=== PATIENT | female | born 1945 | race Caucasian/White ===

== ENCOUNTER 2022-08-08 09:49 | Inpatient (IN) ==
[2022-08-08] MEDS ORDERED: KETOROLAC 30 MG/ML VIAL IV ONE (09:56)
--- NOTE | 2022-08-08 10:35 | XRay Report ---
INDICATION: trauma TECHNIQUE: AP and crosstable lateral right femur COMPARISON: None. FINDINGS: Previous right total knee arthroplasty Right hip is not optimally visualized. If this patient has right hip pain in a right hip fracture is suspected routine right hip x-rays are recommended. Right femur is otherwise negative. Normal femoral diaphysis. There is no fracture. No cortical destruction. There is atherosclerotic calcification. No focal soft tissue abnormality IMPRESSION: 1. Poorly visualized right hip. If right hip pathology is suspected repeat plain film examination or CT scan is recommended. 2. Previous right total knee arthroplasty 3. Negative right femoral diaphysis Interpreted and Authenticated by: Daryl Dunaway 08/08/22
[2022-08-08] MEDS ORDERED: fentaNYL 100 MCG/2 ML VIAL IV ONE (11:04)
--- NOTE | 2022-08-08 11:36 | Cat Scan Report ---
INDICATION: Right hip pain TECHNIQUE: Axial images through the pelvis. Sagittal and coronal reformatted images COMPARISON: None. FINDINGS: Right subcapital hip fracture. This is mildly displaced. Left hip is negative. There is no fracture. No avascular necrosis Sacrum is negative. No sacral fracture. No lytic lesion. Severe degenerative facet arthropathy at L5-S1. No intrapelvic abnormality. There is atherosclerotic calcification. No pelvic mass. No fluid collection. There is prominent fecal material consistent with constipation. There is an umbilical hernia which measures approximately 2.5 cm in cross-sectional diameter. There is a knuckle of small bowel protruding into the herniated defect Pelvis is negative. No pelvic fracture. IMPRESSION: 1. Displaced right subcapital hip fracture 2. Small umbilical hernia with a knuckle of small bowel 3. Probable constipation Interpreted and Authenticated by: Daryl Dunaway 08/08/22
[2022-08-08 12:58] LABS: INR 1.1 (0.9-1.1); Prothrombin Time 14.4 sec (11.9-14.5)
[2022-08-08 13:11] LABS: Basophils # (Auto) 0.01 K/mcL (0.00-0.30); Basophils % (Auto) 0.2 % (0.0-2.0); Eosinophils # (Auto) 0.07 K/mcL (0.00-0.70); Eosinophils % (Auto) 1.7 % (0.0-7.0); Hematocrit 27.8 % (34.1-44.9); Hemoglobin 8.9 g/dL (11.2-15.7); Lymphocytes % (Auto) 11.9 % (15.5-49.0); Mean Cell Volume 80.6 fL (80.0-100.0); Mean Platelet Volume 10.4 fL (8.8-12.5); Monocytes # (Auto) 0.22 K/mcL (0.10-0.90); Monocytes % (Auto) 5.3 % (1.0-12.0); Neutrophils % (Auto) 80.4 % (38.0-78.0); Platelet Count 68 K/mcL (140-440); RBC 3.45 M/mcL (3.59-5.38); Red Cell Distribution Width 18.5 % (11.5-14.5); WBC 4.2 K/mcL (4.5-11.0)
[2022-08-08 13:15] LABS: ALT/SGPT 29 U/L (<40); AST/SGOT 33 U/L (<32); Albumin 3.5 gm/dL (3.2-5.2); Albumin/Globulin Ratio 1.1 (1.0-2.3); Alkaline Phosphatase 230 U/L (39-117); Bilirubin,Total 0.7 mg/dL (0.1-1.0); Blood Urea Nitrogen 62 mg/dL (8-23); Carbon Dioxide 23 mmol/L (22-30); Chloride 104 mmol/L (96-108); Globulin 3.2 gm/dL (2.2-3.7); Glomerular Filtration Rate 22; Glucose 196 mg/dL (70-105)
--- NOTE | 2022-08-08 13:17 | Emergency Department Note ---
Lower Extremity Injury HPI General Chief Complaint: Extremity Injury, Lower Stated Complaint: fall Time Seen by Provider: 08/08/22 12:10 Source: EMS Mode of arrival: EMS Limitations: no limitations History of Present Illness HPI Narrative: Narrative:Pt is a 77-year-old female who presents complaining of pain to her right hip. She fell over because she had walked away from her walker and has a "trick knee" after having it replaced. She states it goes out quite often. The woman fell to her right denies any head neck ribs or upper extremity trauma. The pt has also had a DVT in the past but is no longer being anticoagulated. In addition she has diabetes, CHF and hypertension. Related Data Home Medications Medication Instructions Recorded Confirmed furosemide 20 mg tablet (Lasix) 40 mg PO DAILY 05/26/17 07/13/17 gabapentin 600 mg tablet,extended 1,200 mg PO TID 05/26/17 07/13/17 release 24 hr (Gralise) insulin glargine 100 unit/mL 40 unit SQ HS 05/26/17 07/13/17 subcutaneous solution (Lantus U-100 Insulin) insulin regular human 100 unit/mL 0 unit SQ TIDAC 05/26/17 07/13/17 injection solution (Humulin R Regular U-100 Insulin) latanoprost 0.005 % eye drops 1 drp HS 05/26/17 07/13/17 loratadine 10 mg tablet (Loradamed) 10 mg PO DAILY 05/26/17 07/13/17 losartan 100 mg tablet (Cozaar) 100 mg PO HS 05/26/17 07/13/17 melatonin 5 mg capsule 5 mg PO HS 05/26/17 07/13/17 metoprolol succinate 25 mg 25 mg PO BID 05/26/17 07/13/17 tablet,extended release 24 hr nitroglycerin 0.4 mg sublingual 0.4 mg SL PRN PRN Chest Pain 05/26/17 07/13/17 tablet (Nitrostat) isosorbide mononitrate 30 mg 30 mg PO DAILY 06/26/17 07/13/17 tablet,extended release 24 hr omeprazole 20 mg capsule,delayed 20 mg PO BIDAC 06/26/17 07/13/17 release warfarin 5 mg tablet (Coumadin) 0 mg PO DAILY 07/13/17 07/13/17 Previous Rx's Medication Instructions Recorded oxycodone-acetaminophen 5 mg-325 1 - 2 tab PO Q4H PRN Pain #60 tabs 06/30/17 mg tablet Allergies Allergy/AdvReac Type Severity Reaction Status Date / Time adhesive tape AdvReac Severe Signifcant Verified 08/08/22 09:51 Jovel shellfish derived AdvReac Unknown Unknown Verified 08/08/22 09:52 latex AdvReac Burn Verified 08/08/22 09:51 Opioids - Morphine Analogues AdvReac Vomiting Verified 08/08/22 09:51 red dye AdvReac "yeast Verified 08/08/22 09:51 infection" Plastic Tape AdvReac Severe Significant Uncoded 05/26/17 12:23 jovel Review of Systems ROS ROS Narrative: Narrative: PFSH Narrative Patient History Narrative: Narrative: Medical/Surgical/Family History All Active Problems (Updated 07/13/17 @ 16:57 by Willy Botello MD) Knee pain, right (Acute) DVT (deep venous thrombosis) (Acute) Knee effusion (Acute) Postoperative edema (Acute) Stable angina (Acute) Status post total knee replacement, right (Acute) Social History Smoking Status: Never smoker Exam Narrative Narrative: Narrative: General Limitations: no limitations Course Vital Signs Vital signs: Vital Signs Temperature 97.9 F 08/08/22 09:49 Pulse Rate 69 08/08/22 09:49 Respiratory Rate 14 08/08/22 09:49 Blood Pressure 144/69 08/08/22 09:49 Pulse Oximetry (%) 100 08/08/22 09:49 Oxygen Delivery Method 08/08/22 09:49 Temperature 97.9 F 08/08/22 09:49 Pulse Rate 65 08/08/22 12:31 Respiratory Rate 14 08/08/22 09:49 Blood Pressure 165/64 08/08/22 12:31 Pulse Oximetry (%) 99 08/08/22 12:31 Oxygen Delivery Method 08/08/22 09:49 [facility] Narrative Medical decision making narrative: Narrative: Patient's CAT scan showed Right subcapital hip fracture. This is mildly displaced. Left hip is negative. There is no fracture. No avascular necrosis Sacrum is negative. No sacral fracture. No lytic lesion. Severe degenerative facet arthropathy at L5-S1. No intrapelvic abnormality. There is atherosclerotic calcification. No pelvic mass. No fluid collection. There is prominent fecal material consistent with constipation. There is an umbilical hernia which measures approximately 2.5 cm in cross-sectional diameter. There is a knuckle of small bowel protruding into the herniated defect Pelvis is negative. No pelvic fracture. IMPRESSION: 1. Displaced right subcapital hip fracture Dr. Pereira was consulted and will return call soon as he is out of surgery. Sepsis Sepsis Identified: No Lab Data Result diagrams: 08/08/22 12:10 08/08/22 12:10 Labs: Lab Results 08/08/22 08/08/22 Range/Units 12:10 12:10 WBC 4.2 L (4.5-11.0) K/mcL RBC 3.45 L (3.59-5.38) M/mcL Hgb 8.9 L (11.2-15.7) g/dL Hct 27.8 L (34.1-44.9) % MCV 80.6 (80.0-100.0) fL MCH 25.8 L (26.0-34.0) pg MCHC 32.0 (31.0-36.0) g/dL RDW 18.5 H (11.5-14.5) % Plt Count 68 L (140-440) K/mcL MPV 10.4 (8.8-12.5) fL Immature Gran % (Auto) 0.5 (0.0-0.5) % Neut % (Auto) 80.4 H (38.0-78.0) % Lymph % (Auto) 11.9 L (15.5-49.0) % [place] % (Auto) 5.3 (1.0-12.0) % Eos % (Auto) 1.7 (0.0-7.0) % Baso % (Auto) 0.2 (0.0-2.0) % Lymph # (Auto) 0.50 L (1.50-4.80) K/mcL [place] # (Auto) 0.22 (0.10-0.90) K/mcL Eos # (Auto) 0.07 (0.00-0.70) K/mcL Baso # (Auto) 0.01 (0.00-0.30) K/mcL Immature Gran # 0.02 (0.00-0.05) K/mcl Absolute Neutrophils 3.37 (1.80-8.00) K/mcL PT 14.4 (11.9-14.5) sec INR 1.1 (0.9-1.1) Discharge Plan Patient/Caregiver Discharge Instructions Follow up with: Marina Mejía MD [Primary Care Provider] - Prescriptions: No Action latanoprost 1 GTT Bottle 1 drp OU HS insulin glargine [Lantus U-100 Insulin] 1 UNIT/0.01 ML Unit 40 unit SQ HS insulin regular human [Humulin R Regular U-100 Insuln] 1 UNIT/0.01 ML Unit 0 unit SQ TIDAC nitroglycerin [Nitrostat] 0.4 MG Tab.Subl 0.4 mg SL PRN PRN (Reason: Chest Pain) furosemide [Lasix] 20 MG Tablet 40 mg PO DAILY metoprolol succinate 25 MG Tab.Er.24h 25 mg PO BID losartan [Cozaar] 100 MG Tablet 100 mg PO HS loratadine [Loradamed] 10 MG Tablet 10 mg PO DAILY melatonin 5 MG Capsule 5 mg PO HS gabapentin [Gralise] 600 MG Tab.Er.24h 1,200 mg PO TID Label Comments: 1200mg PO BID and 600mg at Noon isosorbide mononitrate 30 MG Tab.Xl.24h 30 mg PO DAILY omeprazole 20 MG Capsule 20 mg PO BIDAC oxycodone-acetaminophen 1 TAB tablet 1 - 2 tab PO Q4H PRN (Reason: Pain) Qty: 60 0RF warfarin [Coumadin] 5 MG Tablet 0 mg PO DAILY Label Comments: 5mg alternating with 7.5mg
--- NOTE | 2022-08-08 15:18 | Internal Med History&Physical ---
HPI History of Present Illness Patient information: Note initiated : 08/08/22 at 3:12 pm Service Date, if different from initiated Date: [] Patient: Nathaly Kunz 77 y/o F admitted on for fall. Chief Complaint: [fall with right hip fracture] Chief complaint: fall with right hip fracture History of present illness: Ms. Kunz is a 77 year old F history of DVT, osteoarthritis status post right total knee replacement, type 2 diabetes mellitus, essential hypertensions, presenting with fall with right hip fracture. Earlier today, when she was walking from 1 room to the other, her knee just gave out and she fell landed on her right hip. She did not hit her head. She denies loss of consciousness. She denies any chest pain or palpitations. She denies lightheadedness. She denies headaches. She denies altered mental status or confusions. She denies any shortness of breath. Vital signs significant for slightly elevated blood pressure 163/60 9 mmHg latest. Labs remarkable for serum potassium level of 5.8, and serum Cr level of 2.1, baseline of 1.1. Hip and pelvic X ray showing displaced right subcapital hip fracture. Admission request was called for right hip fracture. Patient states that she is not on any anticoagulants such as Coumadin; she was only on Aspirin. Constitutional Constitutional: Absent chills, excessive sweating, fatigue, fever(s) or weakness EENT Eyes: Absent blurry vision, change in vision, loss of vision or other visual disturbances Ears: Absent decreased hearing or tinnitus Nose, mouth and throat: Absent abnormal hearing, dry mouth, headache(s), nasal congestion or sore throat Cardiovascular Cardiovascular: Absent chest pain, chest pain at rest, edema, irregular heart rhythm or palpatations Respiratory Respiratory: Absent cough, dyspnea or wheezing Gastrointestinal Gastrointestinal: Absent abdominal pain, constipation, diarrhea, nausea or vomiting Musculoskeletal Musculoskeletal: Absent back pain, deformity, limited range of motion, muscle cramps, muscle weakness or numbness Additional comments: Right hip pain Integumentary Integumentary: Absent lesions, rash or wounds Neurological Neurological: Absent focal weakness, headache(s) or numbness Psychiatric Psychiatric: Absent anxiety, depression or hallucinations PFSH PFSH All Active Problems (Updated 08/08/22 @ 15:17 by Valente Hopkins MD) Hyperkalemia (Acute) Stage 2 acute kidney injury (Acute) Essential hypertension (Acute) T2DM (type 2 diabetes mellitus) (Acute) Closed right hip fracture (Acute) Knee pain, right (Acute) DVT (deep venous thrombosis) (Acute) Knee effusion (Acute) Postoperative edema (Acute) Stable angina (Acute) Status post total knee replacement, right (Acute) Fracture of femur (Acute) Social History smoking status: Never smoker MEDS/ALLERGIES Home Medications and Allergies Home Medications Medication Instructions Recorded Confirmed Type furosemide 20 mg tablet (Lasix) 40 mg PO DAILY 05/26/17 07/13/17 History gabapentin 600 mg tablet,extended 1,200 mg PO TID 05/26/17 07/13/17 History release 24 hr (Gralise) insulin glargine 100 unit/mL 40 unit SQ HS 05/26/17 07/13/17 History subcutaneous solution (Lantus U-100 Insulin) insulin regular human 100 unit/mL 0 unit SQ TIDAC 05/26/17 07/13/17 History injection solution (Humulin R Regular U-100 Insulin) latanoprost 0.005 % eye drops 1 drp HS 05/26/17 07/13/17 History loratadine 10 mg tablet (Loradamed) 10 mg PO DAILY 05/26/17 07/13/17 History losartan 100 mg tablet (Cozaar) 100 mg PO HS 05/26/17 07/13/17 History melatonin 5 mg capsule 5 mg PO HS 05/26/17 07/13/17 History metoprolol succinate 25 mg 25 mg PO BID 05/26/17 07/13/17 History tablet,extended release 24 hr nitroglycerin 0.4 mg sublingual 0.4 mg SL PRN PRN Chest Pain 05/26/17 07/13/17 History tablet (Nitrostat) isosorbide mononitrate 30 mg 30 mg PO DAILY 06/26/17 07/13/17 History tablet,extended release 24 hr omeprazole 20 mg capsule,delayed 20 mg PO BIDAC 06/26/17 07/13/17 History release oxycodone-acetaminophen 5 mg-325 1 - 2 tab PO Q4H PRN Pain #60 tabs 06/30/17 07/13/17 Rx mg tablet warfarin 5 mg tablet (Coumadin) 0 mg PO DAILY 07/13/17 07/13/17 History Allergies Allergy/AdvReac Type Severity Reaction Status Date / Time adhesive tape AdvReac Severe Signifcant Verified 08/08/22 09:51 Jovel shellfish derived AdvReac Unknown Unknown Verified 08/08/22 09:52 latex AdvReac Burn Verified 08/08/22 09:51 Opioids - Morphine Analogues AdvReac Vomiting Verified 08/08/22 09:51 red dye AdvReac "yeast Verified 08/08/22 09:51 infection" Plastic Tape AdvReac Severe Significant Uncoded 05/26/17 12:23 jovel EXAM Constitutional Vitals: Temp Pulse Resp BP Pulse Ox O2 Del Method 36.6 C 64 14 163/69 98 08/08/22 09:49 08/08/22 14:50 08/08/22 09:49 08/08/22 14:50 08/08/22 14:50 08/08/22 09:49 General appearance: cooperative and no acute distress Head Head exam: Present atraumatic and normocephalic Eye Eye exam: Present EOMI and PERRL ENT ENT exam: Present mucous membranes moist, normal exam and normal external ear exam Neck Neck exam: Present normal inspection; Absent lymphadenopathy, tenderness or thyromegaly Respiratory Respiratory exam: Absent accessory muscle use, respiratory distress or wheezes Cardiovascular Cardiovascular exam: Present normal rate and rhythm; Absent JVD GI/Abdominal GI/Abdominal exam: Present normal bowel sounds and soft; Absent organomegaly or tenderness Additional comments: Price catheter in place Extremities Exam Extremities exam: Present normal capillary refill, normal inspection and tenderness; Absent full ROM Additional comments: Right lower extremity active and passive ROMs limited by pain Neurological Exam Neurological exam: Present alert, CN II-XII intact and oriented X3; Absent motor sensory deficit Psychiatric Psychiatric exam: Present normal affect and normal mood; Absent anxious or depressed Skin Skin exam: Present dry and intact DATA Data Completed and Pending Labs: Labs from last 24 hours 08/08/22 08/08/22 08/08/22 12:10 12:10 12:10 WBC 4.2 L RBC 3.45 L Hgb 8.9 L Hct 27.8 L MCV 80.6 MCH 25.8 L MCHC 32.0 RDW 18.5 H Plt Count 68 L MPV 10.4 Immature Gran % (Auto) 0.5 Neut % (Auto) 80.4 H Lymph % (Auto) 11.9 L [place] % (Auto) 5.3 Eos % (Auto) 1.7 Baso % (Auto) 0.2 Lymph # (Auto) 0.50 L [place] # (Auto) 0.22 Eos # (Auto) 0.07 Baso # (Auto) 0.01 Immature Gran # 0.02 Absolute Neutrophils 3.37 PT 14.4 INR 1.1 Sodium 136 Potassium 5.8 H Chloride 104 Carbon Dioxide 23 Anion Gap 9.0 BUN 62 H Creatinine 2.1 H GFR Calculation 22 Glucose 196 H Calcium 10.0 Total Bilirubin 0.7 AST 33 H ALT 29 Alkaline Phosphatase 230 H Total Protein 6.7 Albumin 3.5 Globulin 3.2 Albumin/Globulin Ratio 1.1 Urine Color Urine Appearance Urine pH Ur Specific [place] Urine Protein Urine Glucose (UA) Urine Ketones Urine Occult Blood Urine Nitrate Urine Bilirubin Urine Urobilinogen Ur Leukocyte Esterase 08/08/22 12:00 WBC RBC Hgb Hct MCV MCH MCHC RDW Plt Count MPV Immature Gran % (Auto) Neut % (Auto) Lymph % (Auto) [place] % (Auto) Eos % (Auto) Baso % (Auto) Lymph # (Auto) [place] # (Auto) Eos # (Auto) Baso # (Auto) Immature Gran # Absolute Neutrophils PT INR Sodium Potassium Chloride Carbon Dioxide Anion Gap BUN Creatinine GFR Calculation Glucose Calcium Total Bilirubin AST ALT Alkaline Phosphatase Total Protein Albumin Globulin Albumin/Globulin Ratio Urine Color Pending Urine Appearance Pending Urine pH Pending Ur Specific [place] Pending Urine Protein Pending Urine Glucose (UA) Pending Urine Ketones Pending Urine Occult Blood Pending Urine Nitrate Pending Urine Bilirubin Pending Urine Urobilinogen Pending Ur Leukocyte Esterase Pending A/P Assessment and plan (1) Closed right hip fracture: Status: Acute (2) DVT (deep venous thrombosis): Status: Acute Qualifiers: Affected thrombotic vein of extremity: popliteal Chronicity: acute DVT location: lower extremity Laterality: right Qualified Code(s): I82.431 - Acute embolism and thrombosis of right popliteal vein (3) T2DM (type 2 diabetes mellitus): Status: Acute (4) Essential hypertension: Status: Acute (5) Stage 2 acute kidney injury: Status: Acute (6) Hyperkalemia: Status: Acute Narrative A/P Narrative: Assessment and Plans: 1. Closed right subcapital hip fracture: Inpatient med surg Consult orthopedic surgeon Dr. Pereira for surgical management, recs. appreciated NPO after midnight with IV fluid NS@100cc/hr Bedrest Tylenol PRN mild pain [place] PRN moderate pain Dilaudid IV PRN severe pain Robaxin PRN muscle spasm Physical therapy evaluation and treatment 2. Hyperkalemia without ECG changes: Calcium gluconate IV once IV fluid NS@100cc/hr Hold Losartan BMP in the morning to trend serum potassium level 3. Stage 2 acute kidney injury: Avoid nephrotoxic agents Hold Lasix, Losartan IV fluid NS@100cc/hr BMP in the morning to trend kidney functions 4. T2DM: HgA1c Hold any oral hypoglycemics Lantus 40 unit HS Insulin Lispro SSI AC HS Neurotin Accu Check AC HS Hypoglycemia protocol Diabetic diet until midnight 5. Essential hypertension: Hold Lasix, Losartan Metoprolol ER Hydralazine 10mg IV q4-6hr PRN SBP>=180 and/or DBP>=110mmHg GI ppx: Prilosec DVT ppx: SCDs Code status: Full Prognosis: Guarded Disposition: inpatient med surg; PT Time Spent With Patient Time: Total time spent is greater than 50% in coordination of care (as documented) at patient's floor/unit and/or counseling patient: Total time spent with greater than 50% in coordination of care (as documented) at patient's floor/unit and/or counseling patient:: 50 - 70 minutes
[2022-08-08 15:21] LABS: Appearance,Urine CLEAR (Clear); Bacteria,Urine MOD /hpf (0); Bilirubin,Urine NEGATIVE (Negative); Color,Urine LT. YELLOW; Culture Indicated,Urine yes; Glucose,Urine (UA) NEGATIVE (Negative); Ketones,Urine NEGATIVE (Negative); Leukocyte Esterase,Urine SMALL /uL (Negative); Nitrate,Urine Positive (Negative); PH,Urine 5.5 (5.0-9.0); Protein,Urine NEGATIVE (Negative); Urine Blood NEGATIVE ery/mcL (Negative); Urine Hyaline Cast 3 /lph (0-2); Urine RBC < 1 /hpf (0-3); Urine Squamous Epithelial Cell < 1 /hpf (0-4); Urine Transitional Epi Cells < 1 /hpf (0-2); Urine WBC 24 /hpf (0-4); Urobilinogen,Urine Normal
[2022-08-08] MEDS ORDERED: IPRATROPIUM/ALBUTEROL 3 ML AMPUL.NEB NEB PRN (16:06)
[2022-08-08] MEDS ORDERED: DEXTROSE 31 GM ORAL.SUSP PO PRN (16:06)
[2022-08-08] MEDS ORDERED: hydrALAZINE 20 MG/ML VIAL IV PRN (16:06)
[2022-08-08] MEDS ORDERED: traZODone HCL 50 MG TABLET PO PRN (16:06)
[2022-08-08] MEDS ORDERED: HYDROcodone/APAP 5/325MG TABLET PO PRN (16:06)
[2022-08-08] MEDS ORDERED: CALCIUM GLUCONATE 4.65 MEQ/10 ML VIAL IV ONE (16:06)
[2022-08-08] MEDS ORDERED: DEXTROSE 50% 50 ML VIAL IV PRN (16:06)
[2022-08-08] MEDS: 0.9 % SODIUM CHLORIDE 1,000 ML IV SCH (16:22)
[2022-08-08 16:57] LABS: Estimated Average Glucose(eAG) 183 mg/dL
[2022-08-08] MEDS: CALCIUM GLUCONATE 4.65 MEQ in DEXTROSE 5% IN WATER 50 ML IV SCH ×2 (16:59→17:41)
[2022-08-08] MEDS: INSULIN LISPRO 1 UNIT/0.01 ML UNIT SQ SCH ×2 (16:59→22:26)
[2022-08-08] MEDS: HYDROmorphone 0.5 MG/0.5 ML SYRINGE IV PRN ×2 (17:44→22:20)
[2022-08-08] MEDS ORDERED: NITROGLYCERIN 0.4 MG TAB.SUBL SL PRN (20:04)
[2022-08-08] MEDS: LATANOPROST OPHTH DROPS 2.5ML BOTTLE OU SCH (22:19)
[2022-08-08] MEDS: METOPROLOL SUCCINATE 25 MG TAB.XL.24H PO SCH (22:25)
[2022-08-08] MEDS: GABAPENTIN 400 MG CAPSULE PO SCH (22:25)
[2022-08-08] MEDS: DOCUSATE SODIUM 100 MG CAPSULE PO SCH (22:25)
[2022-08-08] MEDS: MELATONIN 3 MG TABLET PO SCH (22:25)
[2022-08-08] MEDS: SENNOSIDES 1 TABLET PO SCH (22:25)
[2022-08-08] MEDS: INSULIN GLARGINE, HUMAN 1 UNIT/0.01 ML SQ SCH (22:26)
[2022-08-08] MEDS: 0.9 % SODIUM CHLORIDE 10 ML SYRINGE IV SCH (22:40)
[2022-08-09] MEDS: 0.9 % SODIUM CHLORIDE 1,000 ML IV SCH ×3 (02:25→20:46)
[2022-08-09] MEDS: HYDROmorphone 0.5 MG/0.5 ML SYRINGE IV PRN ×5 (02:26→22:37)
[2022-08-09] MEDS: 0.9 % SODIUM CHLORIDE 10 ML SYRINGE IV SCH ×3 (04:51→22:03)
[2022-08-09 06:51] LABS: Basophils # (Auto) 0 K/mcL (0.00-0.30); Basophils % (Auto) 0 % (0.0-2.0); Eosinophils # (Auto) 0.11 K/mcL (0.00-0.70); Eosinophils % (Auto) 4.5 % (0.0-7.0); Hematocrit 24.9 % (34.1-44.9); Hemoglobin 8.1 g/dL (11.2-15.7); Lymphocytes # (Auto) 0.53 K/mcL (1.50-4.80); Lymphocytes % (Auto) 21.9 % (15.5-49.0); Mean Corpuscular HGB Conc 32.5 g/dL (31.0-36.0); Mean Platelet Volume 10.8 fL (8.8-12.5); Monocytes # (Auto) 0.18 K/mcL (0.10-0.90); Monocytes % (Auto) 7.4 % (1.0-12.0); Neutrophils % (Auto) 65.8 % (38.0-78.0); Platelet Count 71 K/mcL (140-440); Red Cell Distribution Width 18.3 % (11.5-14.5); WBC 2.4 K/mcL (4.5-11.0)
[2022-08-09 07:05] LABS: ALT/SGPT 24 U/L (<40); AST/SGOT 27 U/L (<32); Albumin 3.1 gm/dL (3.2-5.2); Alkaline Phosphatase 209 U/L (39-117); Bilirubin,Total 0.5 mg/dL (0.1-1.0); Blood Urea Nitrogen 58 mg/dL (8-23); Calcium 9.8 mg/dL (8.6-10.4); Carbon Dioxide 22 mmol/L (22-30); Chloride 107 mmol/L (96-108); Glomerular Filtration Rate 27; Glucose 138 mg/dL (70-105)
[2022-08-09] MEDS: INSULIN LISPRO 1 UNIT/0.01 ML UNIT SQ SCH ×4 (08:01→22:02)
[2022-08-09] MEDS: METOPROLOL SUCCINATE 25 MG TAB.XL.24H PO SCH ×2 (08:05→22:15)
[2022-08-09] MEDS: DOCUSATE SODIUM 100 MG CAPSULE PO SCH ×2 (08:05→22:15)
[2022-08-09] MEDS: GABAPENTIN 400 MG CAPSULE PO SCH ×3 (08:05→22:15)
[2022-08-09] MEDS: OMEPRAZOLE 20 MG CAPSULE PO SCH ×2 (08:05→17:00)
[2022-08-09] MEDS: ISOSORBIDE MONONITRATE 30 MG TAB.XL.24H PO SCH (08:05)
--- NOTE | 2022-08-09 08:52 | Internal Med Progress Note ---
SUBJECTIVE Subjective Patient information: Note initiated : 08/09/22 at 8:48 am Service Date, if different from initiated Date: [] Patient: Nathaly Kunz 77 y/o F admitted on 08/08/22 for fall. Chief Complaint: [] Interval history: Ms. Kunz is a 77 year old F history of DVT, osteoarthritis status post right total knee replacement, type 2 diabetes mellitus, essential hypertensions, presenting with fall with right hip fracture. Earlier today, when she was walking from 1 room to the other, her knee just gave out and she fell landed on her right hip. She did not hit her head. She denies loss of consciousness. She denies any chest pain or palpitations. She denies lightheadedness. She denies headaches. She denies altered mental status or confusions. She denies any shortness of breath. Vital signs significant for slightly elevated blood pressure 163/60 9 mmHg latest. Labs remarkable for serum potassium level of 5.8, and serum Cr level of 2.1, baseline of 1.1. Hip and pelvic X ray showing displaced right subcapital hip fracture. Admission request was called for right hip fracture. Patient states that she is not on any anticoagulants such as Coumadin; she was only on Aspirin. 08/09: Serum potassium 5.8-->5.4, serum Cr level 2.1-->1.8. Continue IV fluid infusion for the time being. Patient did had good sleep last night, and she denies having any right hip pain at the moment. Urine studies suggest the presence of bacteriuria/urinary tract infections. She denies any dysuria but is complaining of increased urinary frequency prior to urinary catheter being placed in the ED. She denies any fever chills or diaphoresis. Surgery scheduled this afternoon. We have obtained blood culture x2 and will start her on Rocephin for coverage of urinary tract infections. Continue pain control meanwhile. Physical therapy evaluation and treatments after the surgery. Constitutional Vitals: Vital Signs Temp Pulse Resp BP Pulse Ox O2 Del Method 37.1 C 63 16 134/47 96 08/09/22 07:04 08/09/22 07:04 08/09/22 07:04 08/09/22 07:04 08/09/22 07:04 08/09/22 07:04 Period Temp Pulse Resp BP Sys/Stout Pulse Ox O2 Del Method O2 Flow Rate Last 24 Hr 36.3 C-37.4 C 59-82 14-18 134-169/47-81 93-100 Room Air-Room Air Intake and Output 08/08/22 08/09/22 08/09/22 19:59 03:59 11:59 Intake Total 60 1060 240 Output Total 650 Balance 60 1060 -410 Weight 72.575 kg 72.439 kg Intake & Output: Intake & Output 08/08/22 08/09/22 08/09/22 19:59 03:59 11:59 Intake Total 60 1060 240 Output Total 650 Balance 60 1060 -410 Weight 72.575 kg 72.439 kg Intake: IV 60 1060 Sodium Chloride 0.9% 1,000 ml @ 1000 100 mls/hr IV .Q10H [facility] Rx#: [id number] Calcium Gluconate 4.65 Meq In 60 60 Dextrose 5% in Water 50 ml @ 100 mls/hr IV 1630,1730 [facility] Rx# :[id number] Oral 240 Output: Urine Catheter Amount 650 Other: Urine Appearance Clear Uretheral (Price) Clear Clear Urine Color Yellow Uretheral (Price) Dark Yellow Yellow Head Head exam: Present atraumatic and normal inspection Eye Eye exam: Present normal appearance ENT ENT exam: Present mucous membranes moist, normal exam and normal external ear exam Neck Neck exam: Present normal inspection Respiratory Respiratory exam: Present normal respiratory exam Cardiovascular Cardiovascular exam: Present normal rate and rhythm GI/Abdominal GI/Abdominal exam: Present normal bowel sounds Additional comments: Price catheter in place Extremities Exam Extremities exam: Present tenderness; Absent full ROM or normal inspection Additional comments: Right lower extremity active and passive ROMs limited by pain Back Exam Back exam: Present normal inspection Neurological Exam Neurological exam: Present alert and oriented X3 Skin Skin exam: Present intact and warm OBJ DATA Labs CBC & Chem 7: 08/09/22 05:45 08/09/22 05:45 Labs: Abnormal Lab Results 08/09/22 08/09/22 08/08/22 05:45 05:45 12:10 WBC 2.4 L RBC 3.00 L Hgb 8.1 L Hct 24.9 L MCH RDW 18.3 H Plt Count 71 L Neut % (Auto) Lymph % (Auto) Lymph # (Auto) 0.53 L Absolute Neutrophils 1.59 L Potassium 5.4 H BUN 58 H Creatinine 1.8 H Glucose 138 H Hemoglobin A1c 8.0 H AST Alkaline Phosphatase 209 H Albumin 3.1 L Urine Nitrate Ur Leukocyte Esterase Urine WBC Urine Bacteria Hyaline Casts 08/08/22 08/08/22 08/08/22 12:10 12:10 12:00 WBC 4.2 L RBC 3.45 L Hgb 8.9 L Hct 27.8 L MCH 25.8 L RDW 18.5 H Plt Count 68 L Neut % (Auto) 80.4 H Lymph % (Auto) 11.9 L Lymph # (Auto) 0.50 L Absolute Neutrophils Potassium 5.8 H BUN 62 H Creatinine 2.1 H Glucose 196 H Hemoglobin A1c AST 33 H Alkaline Phosphatase 230 H Albumin Urine Nitrate Positive A Ur Leukocyte Esterase Small A Urine WBC 24 H Urine Bacteria Mod A Hyaline Casts 3 H Meds: Medications Acetaminophen (Acetaminophen 325 Mg Tablet) 650 mg PO Q6HP PRN; Protocol PRN Reason: Per Pain Protocol/Fever > 101 Hydrocodone Bitart/Acetaminophen (Hydrocodone/Apap 5/325mg Tablet) 2 tab PO Q4H P PRN; Protocol PRN Reason: Per Pain Protocol Last Admin: 08/09/22 08:05 Dose: 2 tab Albuterol/Ipratropium (Ipratropium/Albuterol 3 Ml Ampul.Neb) 3 ml NEB Q4HRT PRN PRN Reason: Wheezing Ceftriaxone Sodium (Ceftriaxone 1 Gm Vial) 1 gm IV Q24H [facility]; Protocol Dextrose (Dextrose 50% 50 Ml Vial) 0 ml IV UD PRN PRN Reason: Per Sliding Scale Diagnostic Test (Pha) (Accu-Chek 1 Each Strip) 1 each FS ACHS [facility] Last Admin: 08/09/22 08:01 Dose: 1 each Docusate Sodium (Docusate Sodium 100 Mg Capsule) 100 mg PO BID [facility] Last Admin: 08/09/22 08:05 Dose: 100 mg Gabapentin (Gabapentin 400 Mg Capsule) 1,200 mg PO TID [facility] Last Admin: 08/09/22 08:05 Dose: 1,200 mg Glucose (Dextrose 31 Gm Oral.Susp) 15 gm PO PRN PRN PRN Reason: Hypoglycemia Hydralazine HCl (Hydralazine 20 Mg/Ml Vial) 10 mg IV Q4-6HP PRN PRN Reason: Hypertension Hydromorphone HCl (Hydromorphone 0.5 Mg/0.5 Ml Syringe) 0.5 mg IV Q2HP PRN; Protocol PRN Reason: Per Pain Protocol Last Admin: 08/09/22 07:07 Dose: 0.5 mg Sodium Chloride (Sodium Chloride 0.9%) 1,000 mls @ 100 mls/hr IV .Q10H [facility] Last Admin: 08/09/22 02:25 Dose: 100 mls/hr Insulin Glargine (Insulin Glargine, Human 1 Unit/0.01 Ml) 40 unit SQ [facility] Last Admin: 08/08/22 22:26 Dose: 40 units Insulin Human Lispro (Insulin Lispro 1 Unit/0.01 Ml Unit) 0 unit SQ [facility]; Protocol Last Admin: 08/09/22 08:01 Dose: Not Given Isosorbide Mononitrate (Isosorbide Mononitrate 30 Mg Tab.Xl.24h) 30 mg PO DAILY [facility] Last Admin: 08/09/22 08:05 Dose: 30 mg Latanoprost (Latanoprost Ophth Drops 2.5ml Bottle) 1 gtt OU [facility] Last Admin: 08/08/22 22:19 Dose: Not Given Melatonin (Melatonin 3 Mg Tablet) 3 mg PO [facility] Last Admin: 08/08/22 22:25 Dose: 3 mg Methocarbamol (Methocarbamol 500 Mg Tablet) 500 mg PO QIDP PRN PRN Reason: Muscle Spasm Metoprolol Succinate (Metoprolol Succinate 25 Mg Tab.Xl.24h) 25 mg PO BID [facility] Last Admin: 08/09/22 08:05 Dose: 25 mg Nitroglycerin (Nitroglycerin 0.4 Mg Tab.Subl) 0.4 mg SL PRN PRN PRN Reason: Chest Pain Omeprazole (Omeprazole 20 Mg Capsule) 20 mg PO BIDAC [facility] Last Admin: 08/09/22 08:05 Dose: 20 mg Ondansetron HCl (Ondansetron 4 Mg/2 Ml Vial) 4 mg IV Q6HP PRN PRN Reason: Nausea And Vomiting Scopolamine (Scopolamine 1 Patch Patch) 1 patch TOPICAL PREOP PRN PRN Reason: Nausea And Vomiting Stop: 08/09/22 23:59 Senna (Sennosides 1 Tablet) 2 tab PO [facility] Last Admin: 08/08/22 22:25 Dose: 2 tab Sodium Chloride (0.9 % Sodium Chloride 10 Ml Syringe) 10 ml IV Q8 [facility] Last Admin: 08/09/22 04:51 Dose: Not Given Trazodone HCl (Trazodone Hcl 50 Mg Tablet) 25 mg PO HSP PRN PRN Reason: Insomnia A/P Assessment and plan (1) Closed right hip fracture: Status: Acute (2) DVT (deep venous thrombosis): Status: Acute Qualifiers: Affected thrombotic vein of extremity: popliteal Chronicity: acute DVT location: lower extremity Laterality: right Qualified Code(s): I82.431 - Acute embolism and thrombosis of right popliteal vein (3) T2DM (type 2 diabetes mellitus): Status: Acute (4) Essential hypertension: Status: Acute (5) Stage 2 acute kidney injury: Status: Acute (6) Hyperkalemia: Status: Acute (7) UTI (urinary tract infection): Status: Acute Narrative A/P Narrative: Assessment and Plans: 1. Closed right subcapital hip fracture: Inpatient med surg Consult orthopedic surgeon Dr. Pereira for surgical management, recs. appreciated NPO after midnight with IV fluid NS@100cc/hr Bedrest Tylenol PRN mild pain [place] PRN moderate pain Dilaudid IV PRN severe pain Robaxin PRN muscle spasm Physical therapy evaluation and treatment 2. Hyperkalemia without ECG changes: s/p Calcium gluconate IV once IV fluid NS@100cc/hr Hold Losartan BMP in the morning to trend serum potassium level 3. Stage 2 acute kidney injury: Avoid nephrotoxic agents Hold Lasix, Losartan IV fluid NS@100cc/hr BMP in the morning to trend kidney functions 4. T2DM: HgA1c 8.0 Hold any oral hypoglycemics Lantus 40 unit HS Insulin Lispro SSI AC HS (q6h while NPO) Neurontin Accu Check AC HS (q6h while NPO) Hypoglycemia protocol Resume Diabetic diet after surgery 5. Essential hypertension: Hold Lasix, Losartan Metoprolol ER Hydralazine 10mg IV q4-6hr PRN SBP>=180 and/or DBP>=110mmHg 6. Urinary tract infection: Blood culture X2 Urine culture cbc w/ auto diff in the morning to trend WBC Rocephin IV fluid NS@100cc/hr GI ppx: Prilosec DVT ppx: SCDs Code status: Full Prognosis: Stable Disposition: inpatient med surg; PT Time Spent With Patient Time: Total time spent is greater than 50% in coordination of care (as documented) at patient's floor/unit and/or counseling patient: Total time spent with greater than 50% in coordination of care (as documented) at patient's floor/unit and/or counseling patient:: 25 - 35 minutes QUALITY Stroke Symptom Onset Unknown: No VTE Deep Vein Thrombosis/Pulmonary Embolism Present on Admission: Yes
[2022-08-09] MEDS: cefTRIAXone 1 GM VIAL IV SCH (09:37)
[2022-08-09] MEDS ORDERED: SCOPOLAMINE 1 PATCH PATCH TOPICAL PRN (13:30)
[2022-08-09] MEDS ORDERED: ceFAZolin 2 GM in DEXTROSE 5% IN WATER 50 ML IV SCH (16:00)
[2022-08-09] MEDS ORDERED: FLEETS ADULT ENEMA PR PRN (16:16)
[2022-08-09] MEDS ORDERED: TRANEXAMIC ACID 1,000 MG/10 ML VIAL ONE (16:25)
[2022-08-09] MEDS ORDERED: ceFAZolin 1 GM VIAL IV SCH (16:30)
[2022-08-09] MEDS ORDERED: NALOXONE HCL 0.4 MG/ML VIAL IV PRN (17:02)
[2022-08-09] MEDS ORDERED: IPRATROPIUM/ALBUTEROL 3 ML AMPUL.NEB NEB PRN (17:02)
[2022-08-09] MEDS ORDERED: ACETAMINOPHEN 1,000 MG/100 ML BAG IV ONE ×2 (17:02→17:55)
[2022-08-09] MEDS ORDERED: ONDANSETRON 4 MG/2 ML VIAL IV PRN (17:02)
--- NOTE | 2022-08-09 17:20 | Brief Operative Note ---
Brief Operative Note Date of procedure: 08/09/22 Pre-op diagnosis: right hip fracture Post-op diagnosis: same Procedure: hemiarthroplasty Grafts/Implants: Yes Anesthesia: spinal Findings: fracture Complications: none Surgeon: Remberto Pereira Head Of Precision Targeting: Bipin Kennedy Estimated blood loss (cc): 100 Specimens Removed/Pathology: none sent Condition: stable Disposition: PACU
[2022-08-09] MEDS ORDERED: VANCOMYCIN 1 GM VIAL TOPICAL SCH (17:30)
[2022-08-09] MEDS ORDERED: DOCUSATE SODIUM 100 MG CAPSULE PO SCH (21:00)
[2022-08-09] MEDS: INSULIN GLARGINE, HUMAN 1 UNIT/0.01 ML SQ SCH (22:02)
[2022-08-09] MEDS: LATANOPROST OPHTH DROPS 2.5ML BOTTLE OU SCH (22:03)
[2022-08-09] MEDS: MELATONIN 3 MG TABLET PO SCH (22:15)
[2022-08-09] MEDS: SENNOSIDES 1 TABLET PO SCH (22:15)
[2022-08-09] MEDS: ASPIRIN 81 MG TAB.CHEW PO SCH (22:15)
[2022-08-09] MEDS ORDERED: METHOCARBAMOL 1,000 MG/10 ML VIAL ONE (23:37)
[2022-08-09] MEDS: METHOCARBAMOL 1,000 MG/10 ML VIAL IV PRN (23:40)
[2022-08-10] MEDS: ceFAZolin 1 GM VIAL IV SCH ×2 (00:19→08:31)
[2022-08-10] MEDS: HYDROmorphone 0.5 MG/0.5 ML SYRINGE IV PRN ×3 (02:29→21:38)
[2022-08-10] MEDS ORDERED: METHOCARBAMOL 1,000 MG/10 ML VIAL ONE (05:23)
[2022-08-10] MEDS: METHOCARBAMOL 1,000 MG/10 ML VIAL IV PRN ×2 (05:27→15:56)
[2022-08-10] MEDS: 0.9 % SODIUM CHLORIDE 1,000 ML IV SCH ×3 (05:39→15:46)
[2022-08-10] MEDS: 0.9 % SODIUM CHLORIDE 10 ML SYRINGE IV SCH ×4 (06:56→22:53)
[2022-08-10] MEDS: OMEPRAZOLE 20 MG CAPSULE PO SCH ×2 (07:06→17:53)
[2022-08-10] MEDS: HYDROCODONE/APAP 7.5/325MG TABLET PO PRN ×2 (07:06→14:08)
[2022-08-10] MEDS: INSULIN LISPRO 1 UNIT/0.01 ML UNIT SQ SCH ×4 (07:13→21:46)
[2022-08-10 07:27] LABS: Basophils # (Auto) 0.01 K/mcL (0.00-0.30); Basophils % (Auto) 0.3 % (0.0-2.0); Eosinophils # (Auto) 0.16 K/mcL (0.00-0.70); Eosinophils % (Auto) 4.3 % (0.0-7.0); Hematocrit 25.1 % (34.1-44.9); Hemoglobin 7.7 g/dL (11.2-15.7); Lymphocytes # (Auto) 0.78 K/mcL (1.50-4.80); Lymphocytes % (Auto) 20.7 % (15.5-49.0); Mean Cell Volume 84.2 fL (80.0-100.0); Mean Corpuscular HGB Conc 30.7 g/dL (31.0-36.0); Mean Platelet Volume 10.1 fL (8.8-12.5); Monocytes # (Auto) 0.27 K/mcL (0.10-0.90); Monocytes % (Auto) 7.2 % (1.0-12.0); Neutrophils % (Auto) 67.2 % (38.0-78.0); Platelet Count 74 K/mcL (140-440); RBC 2.98 M/mcL (3.59-5.38); Red Cell Distribution Width 18.4 % (11.5-14.5); WBC 3.8 K/mcL (4.5-11.0)
[2022-08-10 07:44] LABS: ALT/SGPT 23 U/L (<40); AST/SGOT 37 U/L (<32); Albumin 3.4 gm/dL (3.2-5.2); Albumin/Globulin Ratio 1.1 (1.0-2.3); Alkaline Phosphatase 226 U/L (39-117); Bilirubin,Total 0.4 mg/dL (0.1-1.0); Blood Urea Nitrogen 53 mg/dL (8-23); Calcium 9.4 mg/dL (8.6-10.4); Carbon Dioxide 19 mmol/L (22-30); Chloride 109 mmol/L (96-108); Glomerular Filtration Rate 29; Glucose 133 mg/dL (70-105)
[2022-08-10] MEDS: GABAPENTIN 400 MG CAPSULE PO SCH ×3 (08:28→21:37)
[2022-08-10] MEDS: ISOSORBIDE MONONITRATE 30 MG TAB.XL.24H PO SCH (08:28)
[2022-08-10] MEDS: ASPIRIN 81 MG TAB.CHEW PO SCH ×2 (08:28→21:37)
[2022-08-10] MEDS: METOPROLOL SUCCINATE 25 MG TAB.XL.24H PO SCH ×2 (08:28→21:37)
[2022-08-10] MEDS: DOCUSATE SODIUM 100 MG CAPSULE PO SCH ×2 (08:28→21:37)
[2022-08-10] MEDS: cefTRIAXone 1 GM VIAL IV SCH (08:31)
[2022-08-10] MEDS: ONDANSETRON 4 MG/2 ML VIAL IV PRN (09:15)
--- NOTE | 2022-08-10 09:48 | Internal Med Progress Note ---
SUBJECTIVE Subjective Patient information: Note initiated : 08/10/22 at 9:41 am Service Date, if different from initiated Date: [] Patient: Nathaly Kunz a 77 y/o F admitted on 08/08/22 for fall. Chief Complaint: [] Interval history: Ms. Kunz is a 77 year old F history of DVT, osteoarthritis status post right total knee replacement, type 2 diabetes mellitus, essential hypertensions, presenting with fall with right hip fracture. Earlier today, when she was walking from 1 room to the other, her knee just gave out and she fell landed on her right hip. She did not hit her head. She denies loss of consciousness. She denies any chest pain or palpitations. She denies lightheadedness. She denies headaches. She denies altered mental status or confusions. She denies any shortness of breath. Vital signs significant for slightly elevated blood pressure 163/60 9 mmHg latest. Labs remarkable for serum potassium level of 5.8, and serum Cr level of 2.1, baseline of 1.1. Hip and pelvic X ray showing displaced right subcapital hip fracture. Admission request was called for right hip fracture. Patient states that she is not on any anticoagulants such as Coumadin; she was only on Aspirin. 08/09: Serum potassium 5.8-->5.4, serum Cr level 2.1-->1.8. Continue IV fluid infusion for the time being. Patient did had good sleep last night, and she denies having any right hip pain at the moment. Urine studies suggest the presence of bacteriuria/urinary tract infections. She denies any dysuria but is complaining of increased urinary frequency prior to urinary catheter being placed in the ED. She denies any fever chills or diaphoresis. Surgery scheduled this afternoon. We have obtained blood culture x2 and will start her on Rocephin for coverage of urinary tract infections. Continue pain control meanwhile. Physical therapy evaluation and treatments after the surgery. 08/10: s/p hemiarthroplasty by Dr. Pereira on 08/09, patient tolerated the procedure well. Patient had physical therapy sections earlier this morning. She is currently committing of severe right lateral sharp hip pain as well as right lower quadrant abdominal pain. Hemoglobin went from 8.1 prior to the surgery to 7.7 this morning. Surgical site looks clean no blood oozing. Serum potassium level went from 5.4 yesterday to 5.6 this morning. Serum creatinine level went down from 1.8 yesterday to 1.7 this morning. Urine culture growing pansensitive E. coli. Blood culture no growth today. We increased the dose of the Dilaudid IV, continue [place] and Robaxin all for symptoms controlled. Continue laxative and stool softener to promote a bowel movement. Continue IV fluid and Rocephin for urinary tract infections. Continue physical therapy evaluation and treatments. Constitutional Vitals: Vital Signs Temp Pulse Resp BP Pulse Ox O2 Del Method O2 Flow Rate 36.4 C 69 16 132/70 94 2 08/10/22 07:29 08/10/22 07:29 08/10/22 07:29 08/10/22 07:29 08/10/22 07:29 08/10/22 07:29 08/10/22 03:40 Period Temp Pulse Resp BP Sys/Stout Pulse Ox O2 Del Method O2 Flow Rate Last 24 Hr 36.2 C-36.8 C 62-74 12-20 122-153/39-85 90-100 Nasal Cannula- Room Air 0-2 Intake and Output 08/09/22 08/10/22 08/10/22 19:59 03:59 11:59 Intake Total 4413 102 9130 Output Total 15 500 Balance 7645 652 3501 Intake & Output: Intake & Output 08/09/22 08/10/22 08/10/22 19:59 03:59 11:59 Intake Total 5616 361 3347 Output Total 15 500 Balance 6804 842 2877 Intake: IV 485 268 888 Sodium Chloride 0.9% 1,000 ml @ 335 268 888 100 mls/hr IV .Q10H [facility] Rx#: [id number] Ancef 2 gm In Dextrose 5% in 50 Water 50 ml @ 100 mls/hr IV PREOP [facility] Rx#:[id number] Oral 400 700 IV - Manual Only 600 Output: Urine Catheter Amount 500 Estimated Blood Loss 15 Other: Meal Breakfast Percent of Meal Consumed 25% Feeding Ability Assist with Tray Set Up Urine Appearance Clear Clear Sediment Uretheral (Price) Clear Sediment Urine Color Bright Yellow Yellow Uretheral (Price) Yellow Yellow Urine Odor Normal Uretheral (Price) Normal Normal # Bowel Movements 0 General appearance: average body habitus, cooperative and mild distress Head Head exam: Present atraumatic and normal inspection Eye Eye exam: Present normal appearance ENT ENT exam: Present mucous membranes moist, normal exam and normal external ear exam Neck Neck exam: Present normal inspection Respiratory Respiratory exam: Present normal respiratory exam Cardiovascular Cardiovascular exam: Present normal rate and rhythm GI/Abdominal GI/Abdominal exam: Present normal bowel sounds Additional comments: Price catheter in place Extremities Exam Additional comments: Right lateral hip covered by surgical dressing Back Exam Back exam: Present normal inspection Neurological Exam Neurological exam: Present alert and oriented X3 Skin Skin exam: Present intact and warm OBJ DATA Labs CBC & Chem 7: 08/10/22 06:18 08/10/22 06:18 Labs: Abnormal Lab Results 08/10/22 08/10/22 08/09/22 06:18 06:18 05:45 WBC 3.8 L RBC 2.98 L Hgb 7.7 L Hct 25.1 L MCH 25.8 L MCHC 30.7 L RDW 18.4 H Plt Count 74 L Neut % (Auto) Lymph % (Auto) Lymph # (Auto) 0.78 L Absolute Neutrophils Potassium 5.6 H 5.4 H Chloride 109 H Carbon Dioxide 19 L BUN 53 H 58 H Creatinine 1.7 H 1.8 H Glucose 133 H 138 H Hemoglobin A1c AST 37 H Alkaline Phosphatase 226 H 209 H Albumin 3.1 L Urine Nitrate Ur Leukocyte Esterase Urine WBC Urine Bacteria Hyaline Casts 08/09/22 08/08/22 08/08/22 05:45 12:10 12:10 WBC 2.4 L RBC 3.00 L Hgb 8.1 L Hct 24.9 L MCH MCHC RDW 18.3 H Plt Count 71 L Neut % (Auto) Lymph % (Auto) Lymph # (Auto) 0.53 L Absolute Neutrophils 1.59 L Potassium 5.8 H Chloride Carbon Dioxide BUN 62 H Creatinine 2.1 H Glucose 196 H Hemoglobin A1c 8.0 H AST 33 H Alkaline Phosphatase 230 H Albumin Urine Nitrate Ur Leukocyte Esterase Urine WBC Urine Bacteria Hyaline Casts 08/08/22 08/08/22 12:10 12:00 WBC 4.2 L RBC 3.45 L Hgb 8.9 L Hct 27.8 L MCH 25.8 L MCHC RDW 18.5 H Plt Count 68 L Neut % (Auto) 80.4 H Lymph % (Auto) 11.9 L Lymph # (Auto) 0.50 L Absolute Neutrophils Potassium Chloride Carbon Dioxide BUN Creatinine Glucose Hemoglobin A1c AST Alkaline Phosphatase Albumin Urine Nitrate Positive A Ur Leukocyte Esterase Small A Urine WBC 24 H Urine Bacteria Mod A Hyaline Casts 3 H Meds: Medications Acetaminophen (Acetaminophen 325 Mg Tablet) 650 mg PO Q6HP PRN; Protocol PRN Reason: Per Pain Protocol/Fever > 101 Hydrocodone Bitart/Acetaminophen (Hydrocodone/Apap 7.5/325mg Tablet) 0 tab PO Q4HP PRN; Protocol PRN Reason: Per Pain Protocol Last Admin: 08/10/22 07:06 Dose: 1 tab Albuterol/Ipratropium (Ipratropium/Albuterol 3 Ml Ampul.Neb) 3 ml NEB Q4HRT PRN PRN Reason: Wheezing Aspirin (Aspirin 81 Mg Tab.Chew) 81 mg PO BID [facility] Last Admin: 08/10/22 08:28 Dose: 81 mg Ceftriaxone Sodium (Ceftriaxone 1 Gm Vial) 1 gm IV Q24H [facility]; Protocol Last Admin: 08/10/22 08:31 Dose: 1 gm Dextrose (Dextrose 50% 50 Ml Vial) 0 ml IV UD PRN PRN Reason: Per Sliding Scale Diagnostic Test (Pha) (Accu-Chek 1 Each Strip) 1 each FS ACHS [facility] Last Admin: 08/10/22 07:07 Dose: 1 each Docusate Sodium (Docusate Sodium 100 Mg Capsule) 100 mg PO BID [facility] Last Admin: 08/10/22 08:28 Dose: 100 mg Gabapentin (Gabapentin 400 Mg Capsule) 1,200 mg PO TID [facility] Last Admin: 08/10/22 08:28 Dose: 1,200 mg Glucose (Dextrose 31 Gm Oral.Susp) 15 gm PO PRN PRN PRN Reason: Hypoglycemia Hydralazine HCl (Hydralazine 20 Mg/Ml Vial) 10 mg IV Q4-6HP PRN PRN Reason: Hypertension Sodium Chloride (Sodium Chloride 0.9%) 1,000 mls @ 100 mls/hr IV .Q10H [facility] Last Admin: 08/10/22 05:39 Dose: 100 mls/hr Insulin Glargine (Insulin Glargine, Human 1 Unit/0.01 Ml) 40 unit SQ [facility] Last Admin: 08/09/22 22:02 Dose: 40 units Insulin Human Lispro (Insulin Lispro 1 Unit/0.01 Ml Unit) [address] [facility]; Protocol Last Admin: 08/10/22 07:13 Dose: Not Given Isosorbide Mononitrate (Isosorbide Mononitrate 30 Mg Tab.Xl.24h) 30 mg PO DAILY [facility] Last Admin: 08/10/22 08:28 Dose: 30 mg Latanoprost (Latanoprost Ophth Drops 2.5ml Bottle) 1 gtt OU [facility] Last Admin: 08/09/22 22:03 Dose: Not Given Melatonin (Melatonin 3 Mg Tablet) 3 mg PO HS [facility] Last Admin: 08/09/22 22:15 Dose: 3 mg Methocarbamol (Methocarbamol 500 Mg Tablet) 500 mg PO QIDP PRN PRN Reason: Muscle Spasm Methocarbamol (Methocarbamol 1,000 Mg/10 Ml Vial) 500 mg IV Q6HP PRN PRN Reason: Muscle Spasm Last Admin: 08/10/22 05:27 Dose: 500 mg Metoprolol Succinate (Metoprolol Succinate 25 Mg Tab.Xl.24h) 25 mg PO BID [facility] Last Admin: 08/10/22 08:28 Dose: 25 mg Nitroglycerin (Nitroglycerin 0.4 Mg Tab.Subl) 0.4 mg SL PRN PRN PRN Reason: Chest Pain Omeprazole (Omeprazole 20 Mg Capsule) 20 mg PO BIDAC [facility] Last Admin: 08/10/22 07:06 Dose: 20 mg Ondansetron HCl (Ondansetron 4 Mg/2 Ml Vial) 4 mg IV Q6HP PRN PRN Reason: Nausea And Vomiting Last Admin: 08/10/22 09:15 Dose: 4 mg Senna (Sennosides 1 Tablet) 2 tab PO [facility] Last Admin: 08/09/22 22:15 Dose: 2 tab Sodium Biphosphate/Sodium Phosphate (Fleets Adult Enema) 1 dose [place] Q3-4DAYS PRN PRN Reason: Constipation Sodium Chloride (0.9 % Sodium Chloride 10 Ml Syringe) 10 ml IV Q8 [facility] Last Admin: 08/10/22 06:56 Dose: Not Given Trazodone HCl (Trazodone Hcl 50 Mg Tablet) 25 mg PO HSP PRN PRN Reason: Insomnia A/P Assessment and plan (1) Closed right hip fracture: Status: Acute (2) DVT (deep venous thrombosis): Status: Acute Qualifiers: Affected thrombotic vein of extremity: popliteal Chronicity: acute DVT location: lower extremity Laterality: right Qualified Code(s): I82.431 - Acute embolism and thrombosis of right popliteal vein (3) T2DM (type 2 diabetes mellitus): Status: Acute (4) Essential hypertension: Status: Acute (5) Stage 2 acute kidney injury: Status: Acute (6) Hyperkalemia: Status: Acute (7) UTI (urinary tract infection): Status: Acute Narrative A/P Narrative: Assessment and Plans: 1. Closed right subcapital hip fracture: Inpatient med surg s/p hemiarthroplasty by Dr. Pereira on 08/09, patient tolerated the procedure well Tylenol PRN mild pain [place] PRN moderate pain Dilaudid IV PRN severe pain, will increase dose to provide better pain control Robaxin PRN muscle spasm Aspirin 81mg PO BID as DVT ppx Physical therapy evaluation and treatment 2. Hyperkalemia without ECG changes: s/p Calcium gluconate IV once IV fluid NS@100cc/hr Hold Losartan BMP in the morning to trend serum potassium level 3. Stage 2 acute kidney injury: Avoid nephrotoxic agents Hold Lasix, Losartan IV fluid NS@100cc/hr BMP in the morning to trend kidney functions 4. T2DM: HgA1c 8.0 Hold any oral hypoglycemics Lantus 40 unit HS Insulin Lispro SSI AC HS Neurontin Accu Check AC HS Hypoglycemia protocol Diabetic diet 5. Essential hypertension: Hold Lasix, Losartan Metoprolol ER Hydralazine 10mg IV q4-6hr PRN SBP>=180 and/or DBP>=110mmHg 6. E coli Urinary tract infection: Blood culture X2, no growth to date Urine culture, grew lew-sensitive E coli cbc w/ auto diff in the morning to trend WBC Rocephin IV fluid NS@100cc/hr GI ppx: Prilosec DVT ppx: Patient does not tolerating SCDs due to neuropathy; will do Aspirin 81mg PO BID Code status: Full Prognosis: Stable Disposition: inpatient med surg; PT Time Spent With Patient Time: Total time spent is greater than 50% in coordination of care (as documented) at patient's floor/unit and/or counseling patient: Total time spent with greater than 50% in coordination of care (as documented) at patient's floor/unit and/or counseling patient:: 25 - 35 minutes QUALITY Stroke Symptom Onset Unknown: No VTE Deep Vein Thrombosis/Pulmonary Embolism Present on Admission: Yes
--- NOTE | 2022-08-10 09:48 | EKG ---
[facility] Test Date: 2022-08-08 Pat Name: Nathaly Kunz Department: ED Room: Gender: Female Associate Product Manager: CS : [id number] Requested By: Chase Castillo Order Number: [id number] Reading MD: Jerrod Mcnamara Measurements Intervals [place] Rate: 64 P: -34 NC: 156 QRS: -72 QRSD: 122 T: 135 QT: 464 QTc: 480 Interpretive Statements Sinus rhythm BORDERLINE IVCD Electronically Signed On 08-10-2022 9:48:17 PST by Jerrod Mcnamara /[facility]/[id number]
[2022-08-10] MEDS: METHOCARBAMOL 500 MG TABLET PO PRN (10:07)
--- NOTE | 2022-08-10 10:18 | General Surgery Progress Note ---
SUBJECTIVE Subjective Patient information: Note initiated : 08/10/22 at 10:17 am Service Date, if different from initiated Date: [] Patient: Nathaly Kunz 77 y/o F admitted on 08/08/22 for fall. Chief Complaint: [] Principal diagnosis: post hip fracture Constitutional Vitals: Vital Signs Temp Pulse Resp BP Pulse Ox O2 Del Method O2 Flow Rate 97.5 F 69 16 132/70 94 2 08/10/22 07:29 08/10/22 07:29 08/10/22 07:29 08/10/22 07:29 08/10/22 07:29 08/10/22 07:29 08/10/22 03:40 Period Temp Pulse Resp BP Sys/Stout Pulse Ox O2 Del Method O2 Flow Rate Last 24 Hr 97.1 F-98.2 F 62-74 12-20 122-153/39-85 90-100 Nasal Cannula- Room Air 0-2 Intake and Output 08/09/22 08/10/22 08/10/22 19:59 03:59 11:59 Intake Total 0230 795 8387 Output Total 15 500 Balance 0702 801 2790 Intake & Output: Intake & Output 08/09/22 08/10/22 08/10/22 19:59 03:59 11:59 Intake Total 6186 581 2331 Output Total 15 500 Balance 5104 365 3906 Intake: IV 485 268 888 Sodium Chloride 0.9% 1,000 ml @ 335 268 888 100 mls/hr IV .Q10H [facility] Rx#: [id number] Ancef 2 gm In Dextrose 5% in 50 Water 50 ml @ 100 mls/hr IV PREOP [facility] Rx#:[id number] Oral 400 700 IV - Manual Only 600 Output: Urine Catheter Amount 500 Estimated Blood Loss 15 Other: Meal Breakfast Percent of Meal Consumed 25% Feeding Ability Assist with Tray Set Up Urine Appearance Clear Clear Sediment Uretheral (Price) Clear Sediment Urine Color Bright Yellow Yellow Uretheral (Price) Yellow Yellow Urine Odor Normal Uretheral (Price) Normal Normal # Bowel Movements 0 Additional findings Additional findings: neuro intact A/P Assessment and plan (1) Hip fracture: Status: Acute Plan mobilize Narrative Plan of Treatment: dc planning Time Spent With Patient Time: Total time spent is greater than 50% in coordination of care (as documented) at patient's floor/unit and/or counseling patient:
[2022-08-10] MEDS: ACETAMINOPHEN 325 MG TABLET PO PRN (11:46)
[2022-08-10] MEDS: MELATONIN 3 MG TABLET PO SCH (21:38)
[2022-08-10] MEDS: SENNOSIDES 1 TABLET PO SCH (21:38)
[2022-08-10] MEDS: INSULIN GLARGINE, HUMAN 1 UNIT/0.01 ML SQ SCH (21:41)
[2022-08-10] MEDS: LATANOPROST OPHTH DROPS 2.5ML BOTTLE OU SCH (22:52)
[2022-08-11] MEDS: 0.9 % SODIUM CHLORIDE 1,000 ML IV SCH ×2 (01:52→05:54)
[2022-08-11] MEDS: HYDROmorphone 0.5 MG/0.5 ML SYRINGE IV PRN ×2 (02:00→19:28)
[2022-08-11] MEDS: HYDROCODONE/APAP 7.5/325MG TABLET PO PRN ×3 (04:39→22:10)
[2022-08-11] MEDS: ONDANSETRON 4 MG/2 ML VIAL IV PRN ×2 (04:40→22:10)
[2022-08-11] MEDS: 0.9 % SODIUM CHLORIDE 10 ML SYRINGE IV SCH ×3 (05:50→22:13)
[2022-08-11 07:19] LABS: Basophils # (Auto) 0.01 K/mcL (0.00-0.30); Basophils % (Auto) 0.3 % (0.0-2.0); Eosinophils # (Auto) 0.18 K/mcL (0.00-0.70); Eosinophils % (Auto) 4.5 % (0.0-7.0); Hematocrit 22.3 % (34.1-44.9); Hemoglobin 6.8 g/dL (11.2-15.7); Lymphocytes # (Auto) 0.66 K/mcL (1.50-4.80); Lymphocytes % (Auto) 16.7 % (15.5-49.0); Mean Cell Volume 88.8 fL (80.0-100.0); Mean Corpuscular HGB Conc 30.5 g/dL (31.0-36.0); Mean Platelet Volume 11.1 fL (8.8-12.5); Monocytes # (Auto) 0.38 K/mcL (0.10-0.90); Monocytes % (Auto) 9.6 % (1.0-12.0); Neutrophils % (Auto) 67.6 % (38.0-78.0); Platelet Count 70 K/mcL (140-440); RBC 2.51 M/mcL (3.59-5.38); Red Cell Distribution Width 18.6 % (11.5-14.5)
[2022-08-11] MEDS ORDERED: 0.9 % SODIUM CHLORIDE 250 ML IV SCH (07:30)
--- NOTE | 2022-08-11 07:39 | Consultation ---
DATE OF CONSULTATION: 08/08/2022 INDICATION: This is a 77-year-old lady. CHIEF COMPLAINT: That of right hip fracture. HISTORY: The patient had a nonsyncopal fall where leg just seemed to give way. She had immediate pain and was unable to bear weight. She presented to the emergency room where radiographs demonstrated femoral neck fracture. We are now called for further evaluation and management. PAST MEDICAL HISTORY: Significant for hyperkalemia, some renal disease, hypertension, diabetes, her stable angina. PAST SURGICAL HISTORY: Not presently contributory. MEDICATIONS: Include: 1. Lasix. 2. Gabapentin. 3. Insulin. 4. Loratadine. 5. Losartan. 6. Metoprolol. 7. Nitroglycerin. 8. Isosorbide. 9. Omeprazole. 10. Oxycodone. 11. Coumadin. ALLERGIES: PLEASE INCLUDE LATEX, RED PLASTIC TAPE. PHYSICAL EXAMINATION: General: She is awake. She answers questions appropriately. HEENT: Head normocephalic, atraumatic. Eyes PERRLA. Conjunctivae clear. ENT within normal limits. Heart: Regular. Lungs: Clear. Abdomen: Benign. Extremities: Her right lower extremity is carefully positioned. Her radiographs demonstrate a right femoral neck fracture which is significantly displaced. IMPRESSION: Femoral neck fracture. PLAN: We will proceed with hemiarthroplasty. Surgical procedure, risks, complications, limitations were reviewed. She understands these well and wished to proceed. [email or web address] Job ID: [id number] Doc ID: [id number] Remberto Pereira MD
[2022-08-11 07:50] LABS: ALT/SGPT 11 U/L (<40); AST/SGOT 26 U/L (<32); Albumin 2.7 gm/dL (3.2-5.2); Alkaline Phosphatase 182 U/L (39-117); Bilirubin,Total 0.3 mg/dL (0.1-1.0); Blood Urea Nitrogen 37 mg/dL (8-23); Calcium 8.7 mg/dL (8.6-10.4); Carbon Dioxide 16 mmol/L (22-30); Chloride 111 mmol/L (96-108); Globulin 2.8 gm/dL (2.2-3.7); Glomerular Filtration Rate 34; Glucose 127 mg/dL (70-105)
[2022-08-11] MEDS: INSULIN LISPRO 1 UNIT/0.01 ML UNIT SQ SCH ×4 (08:37→22:38)
[2022-08-11] MEDS: OMEPRAZOLE 20 MG CAPSULE PO SCH ×2 (08:38→17:43)
--- NOTE | 2022-08-11 09:18 | Internal Med Progress Note ---
SUBJECTIVE Subjective Patient information: Note initiated : 08/11/22 at 9:13 am Service Date, if different from initiated Date: [] Patient: Nathaly Kunz a 77 y/o F admitted on 08/08/22 for fall. Chief Complaint: [] Principal diagnosis: post hip fracture Interval history: Ms. Kunz is a 77 year old F history of DVT, osteoarthritis status post right total knee replacement, type 2 diabetes mellitus, essential hypertensions, presenting with fall with right hip fracture. Earlier today, when she was walking from 1 room to the other, her knee just gave out and she fell landed on her right hip. She did not hit her head. She denies loss of consciousness. She denies any chest pain or palpitations. She denies lightheadedness. She denies headaches. She denies altered mental status or confusions. She denies any shortness of breath. Vital signs significant for slightly elevated blood pressure 163/60 9 mmHg latest. Labs remarkable for serum potassium level of 5.8, and serum Cr level of 2.1, baseline of 1.1. Hip and pelvic X ray showing displaced right subcapital hip fracture. Admission request was called for right hip fracture. Patient states that she is not on any anticoagulants such as Coumadin; she was only on Aspirin. 08/09: Serum potassium 5.8-->5.4, serum Cr level 2.1-->1.8. Continue IV fluid infusion for the time being. Patient did had good sleep last night, and she denies having any right hip pain at the moment. Urine studies suggest the presence of bacteriuria/urinary tract infections. She denies any dysuria but is complaining of increased urinary frequency prior to urinary catheter being placed in the ED. She denies any fever chills or diaphoresis. Surgery scheduled this afternoon. We have obtained blood culture x2 and will start her on Rocephin for coverage of urinary tract infections. Continue pain control meanwhile. Physical therapy evaluation and treatments after the surgery. 08/10: s/p hemiarthroplasty by Dr. Pereira on 08/09, patient tolerated the procedure well. Patient had physical therapy sections earlier this morning. She is currently committing of severe right lateral sharp hip pain as well as right lower quadrant abdominal pain. Hemoglobin went from 8.1 prior to the surgery to 7.7 this morning. Surgical site looks clean no blood oozing. Serum potassium level went from 5.4 yesterday to 5.6 this morning. Serum creatinine level went down from 1.8 yesterday to 1.7 this morning. Urine culture growing pansensitive E. coli. Blood culture no growth today. We increased the dose of the Dilaudid IV, continue Pine and Robaxin all for symptoms controlled. Continue laxative and stool softener to promote a bowel movement. Continue IV fluid and Rocephin for urinary tract infections. Continue physical therapy evaluation and treatments. 08/11: Hemoglobin 6.8 this morning. Serum potassium level 4.8, BUN/Cr 37/1.5, respectively. Patient denies any right hip pain. She is complainining of general body weakness. Continue Dilaudid, Pine, and Robaxin for symptoms control. Transfuse 2 unit pRBC for worsening anemia. Continue laxative and stool softener to promote a bowel movement. Saline lock. Continue Rocephin for urinary tract infections. Continue physical therapy evaluation and treatments for placement planning. Constitutional Vitals: Vital Signs Temp Pulse Resp BP Pulse Ox O2 Del Method O2 Flow Rate 36.6 C 63 16 96/50 95 3 08/11/22 06:42 08/11/22 06:42 08/11/22 06:42 08/11/22 06:42 08/11/22 06:42 08/11/22 06:42 08/11/22 06:42 Period Temp Pulse Resp BP Sys/Stout Pulse Ox O2 Del Method O2 Flow Rate Last 24 Hr 36.4 C-36.8 C 63-84 14-20 96-143/47-75 91-100 Nasal Cannula- Room Air 3-3 Intake and Output 08/10/22 08/11/22 08/11/22 19:59 03:59 11:59 Intake Total 2079 1000 920 Output Total 750 550 Balance 1330 1000 370 Weight 77.111 kg Intake & Output: Intake & Output 08/10/22 08/11/22 08/11/22 19:59 03:59 11:59 Intake Total 2079 1000 920 Output Total 750 550 Balance 1330 1000 370 Weight 77.111 kg Intake: IV 1000 1000 Sodium Chloride 0.9% 1,000 ml @ 1000 1000 100 mls/hr IV .Q10H [facility] Rx#: [id number] Oral 1080 920 Output: Urine Catheter Amount 750 550 Other: Meal Dinner Breakfast Percent of Meal Consumed 50% 0% Feeding Ability Assist with Tray Set Up Urine Appearance Clear Urine Color Yellow Yellow Uretheral (Price) Yellow General appearance: cooperative, no acute distress and obese Head Head exam: Present atraumatic and normal inspection Eye Eye exam: Present normal appearance ENT ENT exam: Present mucous membranes moist, normal exam and normal external ear exam Additional comments: Nasal cannula in place Neck Neck exam: Present normal inspection Respiratory Respiratory exam: Present normal respiratory exam Cardiovascular Cardiovascular exam: Present normal rate and rhythm GI/Abdominal GI/Abdominal exam: Present normal bowel sounds Extremities Exam Extremities exam: Present tenderness; Absent full ROM or normal inspection Additional comments: Right lateral hip covered by surgical dressing Back Exam Back exam: Present normal inspection Neurological Exam Neurological exam: Present alert and oriented X3 Skin Skin exam: Present intact and warm OBJ DATA Labs CBC & Chem 7: 08/11/22 05:40 08/11/22 05:40 Labs: Abnormal Lab Results 08/11/22 08/11/22 08/10/22 05:40 05:40 06:18 WBC 4.0 L RBC 2.51 L Hgb 6.8 L* Hct 22.3 L MCH MCHC 30.5 L RDW 18.6 H Plt Count 70 L Immature Gran % (Auto) 1.3 H Neut % (Auto) Lymph % (Auto) Lymph # (Auto) 0.66 L Absolute Neutrophils Potassium 5.6 H Chloride 111 H 109 H Carbon Dioxide 16 L 19 L BUN 37 H 53 H Creatinine 1.5 H 1.7 H Glucose 127 H 133 H Hemoglobin A1c AST 37 H Alkaline Phosphatase 182 H 226 H Total Protein 5.5 L Albumin 2.7 L Urine Nitrate Ur Leukocyte Esterase Urine WBC Urine Bacteria Hyaline Casts 08/10/22 08/09/22 08/09/22 06:18 05:45 05:45 WBC 3.8 L 2.4 L RBC 2.98 L 3.00 L Hgb 7.7 L 8.1 L Hct 25.1 L 24.9 L MCH 25.8 L MCHC 30.7 L RDW 18.4 H 18.3 H Plt Count 74 L 71 L Immature Gran % (Auto) Neut % (Auto) Lymph % (Auto) Lymph # (Auto) 0.78 L 0.53 L Absolute Neutrophils 1.59 L Potassium 5.4 H Chloride Carbon Dioxide BUN 58 H Creatinine 1.8 H Glucose 138 H Hemoglobin A1c AST Alkaline Phosphatase 209 H Total Protein Albumin 3.1 L Urine Nitrate Ur Leukocyte Esterase Urine WBC Urine Bacteria Hyaline Casts 08/08/22 08/08/22 08/08/22 12:10 12:10 12:10 WBC 4.2 L RBC 3.45 L Hgb 8.9 L Hct 27.8 L MCH 25.8 L MCHC RDW 18.5 H Plt Count 68 L Immature Gran % (Auto) Neut % (Auto) 80.4 H Lymph % (Auto) 11.9 L Lymph # (Auto) 0.50 L Absolute Neutrophils Potassium 5.8 H Chloride Carbon Dioxide BUN 62 H Creatinine 2.1 H Glucose 196 H Hemoglobin A1c 8.0 H AST 33 H Alkaline Phosphatase 230 H Total Protein Albumin Urine Nitrate Ur Leukocyte Esterase Urine WBC Urine Bacteria Hyaline Casts 08/08/22 12:00 WBC RBC Hgb Hct MCH MCHC RDW Plt Count Immature Gran % (Auto) Neut % (Auto) Lymph % (Auto) Lymph # (Auto) Absolute Neutrophils Potassium Chloride Carbon Dioxide BUN Creatinine Glucose Hemoglobin A1c AST Alkaline Phosphatase Total Protein Albumin Urine Nitrate Positive A Ur Leukocyte Esterase Small A Urine WBC 24 H Urine Bacteria Mod A Hyaline Casts 3 H Meds: Medications Acetaminophen (Acetaminophen 325 Mg Tablet) 650 mg PO Q6HP PRN; Protocol PRN Reason: Per Pain Protocol/Fever > 101 Last Admin: 08/10/22 11:46 Dose: 650 mg Hydrocodone Bitart/Acetaminophen (Hydrocodone/Apap 7.5/325mg Tablet) 0 tab PO Q4HP PRN; Protocol PRN Reason: Per Pain Protocol Last Admin: 08/11/22 04:39 Dose: 2 tab Albuterol/Ipratropium (Ipratropium/Albuterol 3 Ml Ampul.Neb) 3 ml NEB Q4HRT PRN PRN Reason: Wheezing Aspirin (Aspirin 81 Mg Tab.Chew) 81 mg PO BID [facility] Last Admin: 08/10/22 21:37 Dose: 81 mg Ceftriaxone Sodium (Ceftriaxone 1 Gm Vial) 1 gm IV Q24H [facility]; Protocol Last Admin: 08/10/22 08:31 Dose: 1 gm Dextrose (Dextrose 50% 50 Ml Vial) 0 ml IV UD PRN PRN Reason: Per Sliding Scale Diagnostic Test (Pha) (Accu-Chek 1 Each Strip) 1 each FS ACHS [facility] Last Admin: 08/11/22 07:50 Dose: 1 each Docusate Sodium (Docusate Sodium 100 Mg Capsule) 100 mg PO BID [facility] Last Admin: 08/10/22 21:37 Dose: 100 mg Gabapentin (Gabapentin 400 Mg Capsule) 1,200 mg PO TID [facility] Last Admin: 08/10/22 21:37 Dose: 1,200 mg Glucose (Dextrose 31 Gm Oral.Susp) 15 gm PO PRN PRN PRN Reason: Hypoglycemia Hydralazine HCl (Hydralazine 20 Mg/Ml Vial) 10 mg IV Q4-6HP PRN PRN Reason: Hypertension Hydromorphone HCl (Hydromorphone 0.5 Mg/0.5 Ml Syringe) 1 mg IV Q2HP PRN; Protocol PRN Reason: Per Pain Protocol Last Admin: 08/11/22 02:00 Dose: 0.5 mg Sodium Chloride (Sodium Chloride 0.9%) 250 mls @ 20 mls/hr IV .[id number] [facility] Stop: 08/11/22 19:59 Insulin Glargine (Insulin Glargine, Human 1 Unit/0.01 Ml) 40 unit SQ [facility] Last Admin: 08/10/22 21:41 Dose: 40 units Insulin Human Lispro (Insulin Lispro 1 Unit/0.01 Ml Unit) 0 unit SQ [facility]; Protocol Last Admin: 08/11/22 08:37 Dose: Not Given Isosorbide Mononitrate (Isosorbide Mononitrate 30 Mg Tab.Xl.24h) 30 mg PO DAILY [facility] Last Admin: 08/10/22 08:28 Dose: 30 mg Latanoprost (Latanoprost Ophth Drops 2.5ml Bottle) 1 gtt [facility]U [facility] Last Admin: 08/10/22 22:52 Dose: Not Given Melatonin (Melatonin 3 Mg Tablet) 3 mg PO [facility] Last Admin: 08/10/22 21:38 Dose: 3 mg Methocarbamol (Methocarbamol 500 Mg Tablet) 500 mg PO QIDP PRN PRN Reason: Muscle Spasm Last Admin: 08/10/22 10:07 Dose: 500 mg Methocarbamol (Methocarbamol 1,000 Mg/10 Ml Vial) 500 mg IV Q6HP PRN PRN Reason: Muscle Spasm Last Admin: 08/10/22 15:56 Dose: 500 mg Metoprolol Succinate (Metoprolol Succinate 25 Mg Tab.Xl.24h) 25 mg PO BID [facility] Last Admin: 08/10/22 21:37 Dose: 25 mg Nitroglycerin (Nitroglycerin 0.4 Mg Tab.Subl) 0.4 mg SL PRN PRN PRN Reason: Chest Pain Omeprazole (Omeprazole 20 Mg Capsule) 20 mg PO BIDAC [facility] Last Admin: 08/11/22 08:38 Dose: Not Given Ondansetron HCl (Ondansetron 4 Mg/2 Ml Vial) 4 mg IV Q6HP PRN PRN Reason: Nausea And Vomiting Last Admin: 08/11/22 04:40 Dose: 4 mg Senna (Sennosides 1 Tablet) 2 tab PO HS [facility] Last Admin: 08/10/22 21:38 Dose: 2 tab Sodium Biphosphate/Sodium Phosphate (Fleets Adult Enema) 1 dose NV Q3-4DAYS PRN PRN Reason: Constipation Sodium Chloride (0.9 % Sodium Chloride 10 Ml Syringe) 10 ml IV Q8 [facility] Last Admin: 08/11/22 05:50 Dose: Not Given Trazodone HCl (Trazodone Hcl 50 Mg Tablet) 25 mg PO HSP PRN PRN Reason: Insomnia A/P Assessment and plan (1) Closed right hip fracture: Status: Acute (2) DVT (deep venous thrombosis): Status: Acute Qualifiers: Affected thrombotic vein of extremity: popliteal Chronicity: acute DVT location: lower extremity Laterality: right Qualified Code(s): I82.431 - Acute embolism and thrombosis of right popliteal vein (3) T2DM (type 2 diabetes mellitus): Status: Acute (4) Essential hypertension: Status: Acute (5) Stage 2 acute kidney injury: Status: Acute (6) Hyperkalemia: Status: Acute (7) UTI (urinary tract infection): Status: Acute (8) Postoperative anemia: Status: Acute Narrative A/P Narrative: Assessment and Plans: 1. Closed right subcapital hip fracture: Inpatient med surg s/p hemiarthroplasty by Dr. Pereira on 08/09, patient tolerated the procedure well Tylenol PRN mild pain Pine PRN moderate pain Dilaudid IV PRN severe pain, will increase dose to provide better pain control Robaxin PRN muscle spasm Aspirin 81mg PO BID as DVT ppx Physical therapy evaluation and treatment 2. Hyperkalemia without ECG changes: s/p Calcium gluconate IV once Saline lock Hold Losartan BMP in the morning to trend serum potassium level 3. Stage 2 acute kidney injury: Avoid nephrotoxic agents Hold Lasix, Losartan Saline lock BMP in the morning to trend kidney functions 4. T2DM: HgA1c 8.0 Hold any oral hypoglycemics Lantus 40 unit HS Insulin Lispro SSI AC HS Neurontin Accu Check AC HS Hypoglycemia protocol Diabetic diet 5. Essential hypertension: Hold Lasix, Losartan Metoprolol ER Hydralazine 10mg IV q4-6hr PRN SBP>=180 and/or DBP>=110mmHg 6. E coli Urinary tract infection: Blood culture X2, no growth to date Urine culture, grew lew-sensitive E coli cbc w/ auto diff in the morning to trend WBC Rocephin Saline lock 7. Post surgical anemia: Transfuse 2 unit pRBC today cbc w/ auto diff to trend H/H GI ppx: Prilosec DVT ppx: Patient does not tolerating SCDs due to neuropathy; will do Aspirin 81mg PO BID Code status: Full Prognosis: Stable Disposition: inpatient med surg; PT Plan of Treatment: dc planning Time Spent With Patient Time: Total time spent is greater than 50% in coordination of care (as documented) at patient's floor/unit and/or counseling patient: Total time spent with greater than 50% in coordination of care (as documented) at patient's floor/unit and/or counseling patient:: 25 - 35 minutes QUALITY Stroke Symptom Onset Unknown: No VTE Deep Vein Thrombosis/Pulmonary Embolism Present on Admission: Yes
[2022-08-11] MEDS: cefTRIAXone 1 GM VIAL IV SCH (10:14)
[2022-08-11] MEDS: GABAPENTIN 400 MG CAPSULE PO SCH ×3 (10:58→22:10)
[2022-08-11] MEDS: ASPIRIN 81 MG TAB.CHEW PO SCH ×2 (11:00→22:10)
[2022-08-11] MEDS: METOPROLOL SUCCINATE 25 MG TAB.XL.24H PO SCH ×2 (11:00→22:09)
[2022-08-11] MEDS: ISOSORBIDE MONONITRATE 30 MG TAB.XL.24H PO SCH (11:01)
[2022-08-11] MEDS: DOCUSATE SODIUM 100 MG CAPSULE PO SCH ×2 (11:07→22:09)
[2022-08-11] MEDS: METHOCARBAMOL 500 MG TABLET PO PRN (11:18)
--- NOTE | 2022-08-11 14:55 | Internal Med Progress Note ---
SUBJECTIVE Subjective Patient information: Note initiated : 08/11/22 at 2:49 pm Service Date, if different from initiated Date: [] Patient: Nathaly Kunz a 77 y/o F admitted on 08/08/22 for fall. Chief Complaint: [] Principal diagnosis: post hip fracture Interval history: Ms. Kunz is a 77 year old F history of DVT, osteoarthritis status post right total knee replacement, type 2 diabetes mellitus, essential hypertensions, presenting with fall with right hip fracture. Earlier today, when she was walking from 1 room to the other, her knee just gave out and she fell landed on her right hip. She did not hit her head. She denies loss of consciousness. She denies any chest pain or palpitations. She denies lightheadedness. She denies headaches. She denies altered mental status or confusions. She denies any shortness of breath. Vital signs significant for slightly elevated blood pressure 163/60 9 mmHg latest. Labs remarkable for serum potassium level of 5.8, and serum Cr level of 2.1, baseline of 1.1. Hip and pelvic X ray showing displaced right subcapital hip fracture. Admission request was called for right hip fracture. Patient states that she is not on any anticoagulants such as Coumadin; she was only on Aspirin. 08/09: Serum potassium 5.8-->5.4, serum Cr level 2.1-->1.8. Continue IV fluid infusion for the time being. Patient did had good sleep last night, and she denies having any right hip pain at the moment. Urine studies suggest the presence of bacteriuria/urinary tract infections. She denies any dysuria but is complaining of increased urinary frequency prior to urinary catheter being placed in the ED. She denies any fever chills or diaphoresis. Surgery scheduled this afternoon. We have obtained blood culture x2 and will start her on Rocephin for coverage of urinary tract infections. Continue pain control meanwhile. Physical therapy evaluation and treatments after the surgery. 08/10: s/p hemiarthroplasty by Dr. Pereira on 08/09, patient tolerated the procedure well. Patient had physical therapy sections earlier this morning. She is currently committing of severe right lateral sharp hip pain as well as right lower quadrant abdominal pain. Hemoglobin went from 8.1 prior to the surgery to 7.7 this morning. Surgical site looks clean no blood oozing. Serum potassium level went from 5.4 yesterday to 5.6 this morning. Serum creatinine level went down from 1.8 yesterday to 1.7 this morning. Urine culture growing pansensitive E. coli. Blood culture no growth today. We increased the dose of the Dilaudid IV, continue Valhalla and Robaxin all for symptoms controlled. Continue laxative and stool softener to promote a bowel movement. Continue IV fluid and Rocephin for urinary tract infections. Continue physical therapy evaluation and treatments. 08/11: Hemoglobin 6.8 this morning. Serum potassium level 4.8, BUN/Cr 37/1.5, respectively. Patient denies any right hip pain. She is complainining of general body weakness. Continue Dilaudid, Valhalla, and Robaxin for symptoms control. Transfuse 2 unit pRBC for worsening anemia. Continue laxative and stool softener to promote a bowel movement. Saline lock. Continue Rocephin for urinary tract infections. Continue physical therapy evaluation and treatments for placement planning. Constitutional Vitals: Vital Signs Temp Pulse Resp BP Pulse Ox O2 Del Method O2 Flow Rate 97.1 F 68 16 149/63 93 3 08/11/22 11:00 08/11/22 12:02 08/11/22 12:02 08/11/22 11:00 08/11/22 12:02 08/11/22 12:02 08/11/22 12:02 Period Temp Pulse Resp BP Sys/Stout Pulse Ox O2 Del Method O2 Flow Rate Last 24 Hr 97.1 F-98.3 F 63-84 14-20 96-149/47-75 91-100 Nasal Cannula- Room Air 3-3 Intake and Output 08/11/22 08/11/22 08/11/22 03:59 11:59 19:59 Intake Total 1000 1040 Output Total 550 Balance 1000 490 Weight 77.111 kg Intake & Output: Intake & Output 08/11/22 08/11/22 08/11/22 03:59 11:59 19:59 Intake Total 1000 1040 Output Total 550 Balance 1000 490 Weight 77.111 kg Intake: IV 1000 Sodium Chloride 0.9% 1,000 ml @ 1000 100 mls/hr IV .Q10H [facility] Rx#: [id number] Oral 1040 Output: Urine Catheter Amount 550 Other: Meal Breakfast Lunch Percent of Meal Consumed 0% 50% Urine Color Yellow Exam: General: Alert, Awake, No acute Distress, obesity Eyes/N/T: EOMI, Head/Neck: neck supple, CV: RRR, No murmurs, Pulm: Clear b/l, no wheezing/rhonchi/rales Abd: soft, nontender, +BS x4 Ext: no clubbing/cyanosis/edema, Right lateral hip covered by surgical dressing Neuro: Alert, no focal deficits, moves all extremities, Skin: warm/dry OBJ DATA Labs CBC & Chem 7: 08/11/22 05:40 08/11/22 05:40 Labs: Abnormal Lab Results 08/11/22 08/11/22 08/10/22 05:40 05:40 06:18 WBC 4.0 L RBC 2.51 L Hgb 6.8 L* Hct 22.3 L MCH MCHC 30.5 L RDW 18.6 H Plt Count 70 L Immature Gran % (Auto) 1.3 H Lymph # (Auto) 0.66 L Absolute Neutrophils Potassium 5.6 H Chloride 111 H 109 H Carbon Dioxide 16 L 19 L BUN 37 H 53 H Creatinine 1.5 H 1.7 H Glucose 127 H 133 H Hemoglobin A1c AST 37 H Alkaline Phosphatase 182 H 226 H Total Protein 5.5 L Albumin 2.7 L Urine Nitrate Ur Leukocyte Esterase Urine WBC Urine Bacteria Hyaline Casts 08/10/22 08/09/22 08/09/22 06:18 05:45 05:45 WBC 3.8 L 2.4 L RBC 2.98 L 3.00 L Hgb 7.7 L 8.1 L Hct 25.1 L 24.9 L MCH 25.8 L MCHC 30.7 L RDW 18.4 H 18.3 H Plt Count 74 L 71 L Immature Gran % (Auto) Lymph # (Auto) 0.78 L 0.53 L Absolute Neutrophils 1.59 L Potassium 5.4 H Chloride Carbon Dioxide BUN 58 H Creatinine 1.8 H Glucose 138 H Hemoglobin A1c AST Alkaline Phosphatase 209 H Total Protein Albumin 3.1 L Urine Nitrate Ur Leukocyte Esterase Urine WBC Urine Bacteria Hyaline Casts 08/08/22 08/08/22 12:10 12:00 WBC RBC Hgb Hct MCH MCHC RDW Plt Count Immature Gran % (Auto) Lymph # (Auto) Absolute Neutrophils Potassium Chloride Carbon Dioxide BUN Creatinine Glucose Hemoglobin A1c 8.0 H AST Alkaline Phosphatase Total Protein Albumin Urine Nitrate Positive A Ur Leukocyte Esterase Small A Urine WBC 24 H Urine Bacteria Mod A Hyaline Casts 3 H Meds: Medications Acetaminophen (Acetaminophen 325 Mg Tablet) 650 mg PO Q6HP PRN; Protocol PRN Reason: Per Pain Protocol/Fever > 101 Last Admin: 08/10/22 11:46 Dose: 650 mg Hydrocodone Bitart/Acetaminophen (Hydrocodone/Apap 7.5/325mg Tablet) 0 tab PO Q4HP PRN; Protocol PRN Reason: Per Pain Protocol Last Admin: 08/11/22 11:05 Dose: 1 tab Albuterol/Ipratropium (Ipratropium/Albuterol 3 Ml Ampul.Neb) 3 ml NEB Q4HRT PRN PRN Reason: Wheezing Aspirin (Aspirin 81 Mg Tab.Chew) 81 mg PO BID [facility] Last Admin: 08/11/22 11:00 Dose: 81 mg Ceftriaxone Sodium (Ceftriaxone 1 Gm Vial) 1 gm IV Q24H [facility]; Protocol Last Admin: 08/11/22 10:14 Dose: 1 gm Dextrose (Dextrose 50% 50 Ml Vial) 0 ml IV UD PRN PRN Reason: Per Sliding Scale Diagnostic Test (Pha) (Accu-Chek 1 Each Strip) 1 each FS ACHS [facility] Last Admin: 08/11/22 11:24 Dose: 1 each Docusate Sodium (Docusate Sodium 100 Mg Capsule) 100 mg PO BID [facility] Last Admin: 08/11/22 11:07 Dose: 100 mg Gabapentin (Gabapentin 400 Mg Capsule) 1,200 mg PO TID [facility] Last Admin: 08/11/22 10:58 Dose: 1,200 mg Glucose (Dextrose 31 Gm Oral.Susp) 15 gm PO PRN PRN PRN Reason: Hypoglycemia Hydralazine HCl (Hydralazine 20 Mg/Ml Vial) 10 mg IV Q4-6HP PRN PRN Reason: Hypertension Hydromorphone HCl (Hydromorphone 0.5 Mg/0.5 Ml Syringe) 1 mg IV Q2HP PRN; Protocol PRN Reason: Per Pain Protocol Last Admin: 08/11/22 02:00 Dose: 0.5 mg Sodium Chloride (Sodium Chloride 0.9%) 250 mls @ 20 mls/hr IV .[id number] [facility] Stop: 08/11/22 19:59 Insulin Glargine (Insulin Glargine, Human 1 Unit/0.01 Ml) 40 unit SQ [facility] Last Admin: 08/10/22 21:41 Dose: 40 units Insulin Human Lispro (Insulin Lispro 1 Unit/0.01 Ml Unit) 0 unit SQ [facility]; Protocol Last Admin: 08/11/22 13:15 Dose: Not Given Isosorbide Mononitrate (Isosorbide Mononitrate 30 Mg Tab.Xl.24h) 30 mg PO DAILY [facility] Last Admin: 08/11/22 11:01 Dose: 30 mg Latanoprost (Latanoprost Ophth Drops 2.5ml Bottle) 1 gtt OU [facility] Last Admin: 08/10/22 22:52 Dose: Not Given Melatonin (Melatonin 3 Mg Tablet) 3 mg PO [facility] Last Admin: 08/10/22 21:38 Dose: 3 mg Methocarbamol (Methocarbamol 500 Mg Tablet) 500 mg PO QIDP PRN PRN Reason: Muscle Spasm Last Admin: 08/11/22 11:18 Dose: 500 mg Methocarbamol (Methocarbamol 1,000 Mg/10 Ml Vial) 500 mg IV Q6HP PRN PRN Reason: Muscle Spasm Last Admin: 08/10/22 15:56 Dose: 500 mg Metoprolol Succinate (Metoprolol Succinate 25 Mg Tab.Xl.24h) 25 mg PO BID [facility] Last Admin: 08/11/22 11:00 Dose: 25 mg Nitroglycerin (Nitroglycerin 0.4 Mg Tab.Subl) 0.4 mg SL PRN PRN PRN Reason: Chest Pain Omeprazole ([facility] 20 Mg [facility]apsule) [facility] Last Admin: 08/11/22 08:38 Dose: Not Given Ondansetron HCl (Ondansetron 4 Mg/2 Ml Vial) 4 mg IV Q6HP PRN PRN Reason: Nausea And Vomiting Last Admin: 08/11/22 04:40 Dose: 4 mg Senna (Sennosides 1 Tablet) 2 tab PO [facility] Last Admin: 08/10/22 21:38 Dose: 2 tab Sodium Biphosphate/Sodium Phosphate (Fleets Adult Enema) 1 dose [place] Q3-4DAYS PRN PRN Reason: Constipation Sodium Chloride (0.9 % Sodium Chloride 10 Ml Syringe) 10 ml IV Q8 [facility] Last Admin: 08/11/22 05:50 Dose: Not Given Trazodone HCl (Trazodone Hcl 50 Mg Tablet) 25 mg PO HSP PRN PRN Reason: Insomnia A/P Narrative A/P Narrative: Assessment and Plans: *Closed right subcapital hip fracture: s/p ORIF Dr. Pereira (08/09) -Tylenol PRN mild pain , Valhalla PRN moderate pain , Dilaudid IV PRN severe pain -Robaxin PRN muscle spasm -Physical therapy evaluation and treatment *Post surgical anemia: -Transfuse 2 unit pRBC today -cbc w/ auto diff to trend H/H *UTI(E coli): -Blood culture X2, no growth to date -Rocephin *Hyperkalemia: -Hold Losartan -f/u chemistry trend serum potassium level *KEVEN: -Avoid nephrotoxic agents -Hold Lasix / Losartan -BMP in the morning to trend kidney functions *T2DM w/neuropathy: -HgA1c 8.0 -Lantus 40 unit HS , SSI -Neurontin *HTN: -Hold Lasix, Losartan. cont Metoprolol ER *Obesity: BMI 31 *ppx: Patient does not tolerating SCDs due to neuropathy; will do Aspirin 81mg PO BID / home ppi Plan of Treatment: dc planning Time Spent With Patient Time: Total time spent is greater than 50% in coordination of care (as documented) at patient's floor/unit and/or counseling patient: QUALITY Stroke Symptom Onset Unknown: No VTE Deep Vein Thrombosis/Pulmonary Embolism Present on Admission: Yes
[2022-08-11] MEDS: MELATONIN 3 MG TABLET PO SCH (22:09)
[2022-08-11] MEDS: SENNOSIDES 1 TABLET PO SCH (22:10)
[2022-08-11] MEDS: LATANOPROST OPHTH DROPS 2.5ML BOTTLE OU SCH (22:11)
[2022-08-11] MEDS: INSULIN GLARGINE, HUMAN 1 UNIT/0.01 ML SQ SCH (22:38)
[2022-08-12] MEDS: 0.9 % SODIUM CHLORIDE 10 ML SYRINGE IV SCH ×3 (06:03→20:18)
[2022-08-12] MEDS: OMEPRAZOLE 20 MG CAPSULE PO SCH ×2 (07:09→17:39)
--- NOTE | 2022-08-12 07:09 | Orthopedic Progress Note ---
SUBJECTIVE Subjective Patient information: Note initiated : 08/12/22 at 7:03 am Service Date, if different from initiated Date: [] Patient: Nathaly Kunz 77 y/o F admitted on 08/08/22 for fall. Chief Complaint: [S/p right hip hemiarthroplasty] Patient is comfortable. Her pain is well-controlled. She denies any chest pain, SOA, or calf tenderness. Principal diagnosis: post hip fracture Constitutional Vitals: Vital Signs Temp Pulse Resp BP Pulse Ox O2 Del Method O2 Flow Rate 98.0 F 77 16 121/47 94 2 08/12/22 04:07 08/12/22 04:07 08/12/22 04:07 08/12/22 04:07 08/12/22 04:07 08/12/22 04:07 08/12/22 04:07 Period Temp Pulse Resp BP Sys/Stout Pulse Ox O2 Del Method O2 Flow Rate Last 24 Hr 97.1 F-98.7 F 66-82 16-20 121-149/47-73 93-100 Nasal Cannula- Nasal Cannula 2-3 Intake and Output 08/11/22 08/12/22 08/12/22 19:59 03:59 11:59 Intake Total 360 Output Total 450 350 Balance -90 -350 Weight 174 lb 12.8 oz Intake & Output: Intake & Output 08/11/22 08/12/22 08/12/22 19:59 03:59 11:59 Intake Total 360 Output Total 450 350 Balance -90 -350 Weight 174 lb 12.8 oz Intake: Oral 360 Output: Urine Catheter Amount 350 Void Amount 450 Other: Meal Dinner Percent of Meal Consumed 50% Feeding Ability Independent Urine Color Yellow Yellow Uretheral (Price) Yellow Urine Odor Strong Extremities Exam Extremities exam: Present calf tenderness (negative bilaterally), tenderness (left hip surgical incision) and Steve's sign (negative bilaterally) Additional comments: Right hip wound and dressing is clean, dry, intact. OBJ DATA Labs CBC & Chem 7: 08/11/22 05:40 08/11/22 05:40 Labs: Abnormal Lab Results 08/11/22 08/11/22 08/10/22 05:40 05:40 06:18 WBC 4.0 L RBC 2.51 L Hgb 6.8 L* Hct 22.3 L MCH MCHC 30.5 L RDW 18.6 H Plt Count 70 L Immature Gran % (Auto) 1.3 H Lymph # (Auto) 0.66 L Potassium 5.6 H Chloride 111 H 109 H Carbon Dioxide 16 L 19 L BUN 37 H 53 H Creatinine 1.5 H 1.7 H Glucose 127 H 133 H AST 37 H Alkaline Phosphatase 182 H 226 H Total Protein 5.5 L Albumin 2.7 L 08/10/22 08/09/22 06:18 05:45 WBC 3.8 L RBC 2.98 L Hgb 7.7 L Hct 25.1 L MCH 25.8 L MCHC 30.7 L RDW 18.4 H Plt Count 74 L Immature Gran % (Auto) Lymph # (Auto) 0.78 L Potassium 5.4 H Chloride Carbon Dioxide BUN 58 H Creatinine 1.8 H Glucose 138 H AST Alkaline Phosphatase 209 H Total Protein Albumin 3.1 L Meds: Medications Acetaminophen (Acetaminophen 325 Mg Tablet) 650 mg PO Q6HP PRN; Protocol PRN Reason: Per Pain Protocol/Fever > 101 Last Admin: 08/10/22 11:46 Dose: 650 mg Hydrocodone Bitart/Acetaminophen (Hydrocodone/Apap 7.5/325mg Tablet) 0 tab PO Q4HP PRN; Protocol PRN Reason: Per Pain Protocol Last Admin: 08/11/22 22:10 Dose: 1 tab Albuterol/Ipratropium (Ipratropium/Albuterol 3 Ml Ampul.Neb) 3 ml NEB Q4HRT PRN PRN Reason: Wheezing Aspirin (Aspirin 81 Mg Tab.Chew) 81 mg PO BID [facility] Last Admin: 08/11/22 22:10 Dose: 81 mg Ceftriaxone Sodium (Ceftriaxone 1 Gm Vial) 1 gm IV Q24H [facility]; Protocol Last Admin: 08/11/22 10:14 Dose: 1 gm Dextrose (Dextrose 50% 50 Ml Vial) 0 ml IV UD PRN PRN Reason: Per Sliding Scale Diagnostic Test (Pha) (Accu-Chek 1 Each Strip) 1 each FS ACHS [facility] Last Admin: 08/11/22 22:11 Dose: 1 each Docusate Sodium (Docusate Sodium 100 Mg Capsule) 100 mg PO BID [facility] Last Admin: 08/11/22 22:09 Dose: 100 mg Gabapentin (Gabapentin 400 Mg Capsule) 1,200 mg PO TID [facility] Last Admin: 08/11/22 22:10 Dose: 1,200 mg Glucose (Dextrose 31 Gm Oral.Susp) 15 gm PO PRN PRN PRN Reason: Hypoglycemia Hydralazine HCl (Hydralazine 20 Mg/Ml Vial) 10 mg IV Q4-6HP PRN PRN Reason: Hypertension Hydromorphone HCl (Hydromorphone 0.5 Mg/0.5 Ml Syringe) 1 mg IV Q2HP PRN; Protocol PRN Reason: Per Pain Protocol Last Admin: 08/11/22 19:28 Dose: 0.5 mg Insulin Glargine (Insulin Glargine, Human 1 Unit/0.01 Ml) 40 unit SQ HS [facility] Last Admin: 08/11/22 22:38 Dose: 40 units Insulin Human Lispro (Insulin Lispro 1 Unit/0.01 Ml Unit) 0 unit SQ [facility]; Protocol Last Admin: 08/11/22 22:38 Dose: 2 units Isosorbide Mononitrate (Isosorbide Mononitrate 30 Mg Tab.Xl.24h) 30 mg PO DAILY [facility] Last Admin: 08/11/22 11:01 Dose: 30 mg Latanoprost (Latanoprost Ophth Drops 2.5ml Bottle) 1 gtt OU HS [facility] Last Admin: 08/11/22 22:11 Dose: Not Given Melatonin (Melatonin 3 Mg Tablet) 3 mg PO HS [facility] Last Admin: 08/11/22 22:09 Dose: 3 mg Methocarbamol (Methocarbamol 500 Mg Tablet) 500 mg PO QIDP PRN PRN Reason: Muscle Spasm Last Admin: 08/11/22 11:18 Dose: 500 mg Methocarbamol (Methocarbamol 1,000 Mg/10 Ml Vial) 500 mg IV Q6HP PRN PRN Reason: Muscle Spasm Last Admin: 08/10/22 15:56 Dose: 500 mg Metoprolol Succinate (Metoprolol Succinate 25 Mg Tab.Xl.24h) 25 mg PO BID [facility] Last Admin: 08/11/22 22:09 Dose: 25 mg Nitroglycerin (Nitroglycerin 0.4 Mg Tab.Subl) 0.4 mg SL PRN PRN PRN Reason: Chest Pain [facility] ([facility] Last Admin: 08/11/22 17:43 Dose: 20 mg Ondansetron HCl (Ondansetron 4 Mg/2 Ml Vial) 4 mg IV Q6HP PRN PRN Reason: Nausea And Vomiting Last Admin: 08/11/22 22:10 Dose: 4 mg Senna (Sennosides 1 Tablet) 2 tab PO HS [facility] Last Admin: 08/11/22 22:10 Dose: 2 tab Sodium Biphosphate/Sodium Phosphate (Fleets Adult Enema) 1 dose [place] Q3-4DAYS PRN PRN Reason: Constipation Sodium Chloride (0.9 % Sodium Chloride 10 Ml Syringe) 10 ml IV Q8 [facility] Last Admin: 08/12/22 06:03 Dose: 10 ml Trazodone HCl (Trazodone Hcl 50 Mg Tablet) 25 mg PO HSP PRN PRN Reason: Insomnia A/P Assessment and plan (1) Closed right hip fracture: Status: Acute Plan Mobilize today with PT/OT. Likely discharge to SNF in 1-2 days. Change dressing to aquacel prior to discharge. F/u with [facility] in 2 weeks. Narrative Plan of Treatment: dc planning Time Spent With Patient Time: Total time spent is greater than 50% in coordination of care (as documented) at patient's floor/unit and/or counseling patient:
[2022-08-12] MEDS: INSULIN LISPRO 1 UNIT/0.01 ML UNIT SQ SCH ×4 (07:12→20:16)
--- NOTE | 2022-08-12 08:29 | Internal Med Progress Note ---
SUBJECTIVE Subjective Patient information: Note initiated : 08/12/22 at 8:28 am Service Date, if different from initiated Date: [] Patient: Nathaly Kunz a 77 y/o F admitted on 08/08/22 for fall. Chief Complaint: [] Principal diagnosis: post hip fracture Interval history: Ms. Kunz is a 77 year old F history of DVT, osteoarthritis status post right total knee replacement, type 2 diabetes mellitus, essential hypertensions, presenting with fall with right hip fracture. Earlier today, when she was walking from 1 room to the other, her knee just gave out and she fell landed on her right hip. She did not hit her head. She denies loss of consciousness. She denies any chest pain or palpitations. She denies lightheadedness. She denies headaches. She denies altered mental status or confusions. She denies any shortness of breath. Vital signs significant for slightly elevated blood pressure 163/60 9 mmHg latest. Labs remarkable for serum potassium level of 5.8, and serum Cr level of 2.1, baseline of 1.1. Hip and pelvic X ray showing displaced right subcapital hip fracture. Admission request was called for right hip fracture. Patient states that she is not on any anticoagulants such as Coumadin; she was only on Aspirin. 08/09: Serum potassium 5.8-->5.4, serum Cr level 2.1-->1.8. Continue IV fluid infusion for the time being. Patient did had good sleep last night, and she denies having any right hip pain at the moment. Urine studies suggest the presence of bacteriuria/urinary tract infections. She denies any dysuria but is complaining of increased urinary frequency prior to urinary catheter being placed in the ED. She denies any fever chills or diaphoresis. Surgery scheduled this afternoon. We have obtained blood culture x2 and will start her on Rocephin for coverage of urinary tract infections. Continue pain control meanwhile. Physical therapy evaluation and treatments after the surgery. 08/10: s/p hemiarthroplasty by Dr. Pereira on 08/09, patient tolerated the procedure well. Patient had physical therapy sections earlier this morning. She is currently committing of severe right lateral sharp hip pain as well as right lower quadrant abdominal pain. Hemoglobin went from 8.1 prior to the surgery to 7.7 this morning. Surgical site looks clean no blood oozing. Serum potassium level went from 5.4 yesterday to 5.6 this morning. Serum creatinine level went down from 1.8 yesterday to 1.7 this morning. Urine culture growing pansensitive E. coli. Blood culture no growth today. We increased the dose of the Dilaudid IV, continue [place] and Robaxin all for symptoms controlled. Continue laxative and stool softener to promote a bowel movement. Continue IV fluid and Rocephin for urinary tract infections. Continue physical therapy evaluation and treatments. 08/11: Hemoglobin 6.8 this morning. Serum potassium level 4.8, BUN/Cr 37/1.5, respectively. Patient denies any right hip pain. She is complainining of general body weakness. Continue Dilaudid, [place], and Robaxin for symptoms control. Transfuse 2 unit pRBC for worsening anemia. Continue laxative and stool softener to promote a bowel movement. Saline lock. Continue Rocephin for urinary tract infections. Continue physical therapy evaluation and treatments for placement planning. 08/12 Patient had reaction to blood transfusion first bag during day shift. Stopped immediately. Awaiting second bag. Waiting follow-up labs. We will need to recheck H&H and follow-up on that second unit of blood. Thrombocytopenia yesterday. To be stable. Follow-up renal function. She complains of constipation. Second unit of blood transfusion right now without incident. Patient received only scant amount of first unit of blood. Constitutional Vitals: Vital Signs Temp Pulse Resp BP Pulse Ox O2 Del Method O2 Flow Rate 97.8 F 77 16 131/44 100 2 08/12/22 07:41 08/12/22 07:41 08/12/22 07:41 08/12/22 07:41 08/12/22 07:41 08/12/22 07:41 08/12/22 07:41 Period Temp Pulse Resp BP Sys/Stout Pulse Ox O2 Del Method O2 Flow Rate Last 24 Hr 97.1 F-98.7 F 66-82 16-20 121-149/44-73 93-100 Nasal Cannula- Nasal Cannula 2-3 Intake and Output 08/11/22 08/12/22 08/12/22 19:59 03:59 11:59 Intake Total 360 Output Total 450 350 Balance -90 -350 Weight 79.288 kg Intake & Output: Intake & Output 08/11/22 08/12/22 08/12/22 19:59 03:59 11:59 Intake Total 360 Output Total 450 350 Balance -90 -350 Weight 79.288 kg Intake: Oral 360 Output: Urine Catheter Amount 350 Void Amount 450 Other: Meal Dinner Percent of Meal Consumed 50% Feeding Ability Independent Urine Color Yellow Yellow Uretheral (Price) Yellow Urine Odor Strong Exam: General: Alert, Awake, No acute Distress, obesity Eyes/N/T: EOMI, Head/Neck: neck supple, CV: RRR, No murmurs, Pulm: Clear b/l, no wheezing/rhonchi/rales Abd: soft, nontender, +BS x4 Ext: no clubbing/cyanosis/edema, Right lateral hip covered by surgical dressing Neuro: Alert, no focal deficits, moves all extremities, Skin: warm/dry OBJ DATA Labs CBC & Chem 7: 08/12/22 12:25 08/12/22 10:46 Labs: Abnormal Lab Results 08/11/22 08/11/22 08/10/22 05:40 05:40 06:18 WBC 4.0 L RBC 2.51 L Hgb 6.8 L* Hct 22.3 L MCH MCHC 30.5 L RDW 18.6 H Plt Count 70 L Immature Gran % (Auto) 1.3 H Lymph # (Auto) 0.66 L Potassium 5.6 H Chloride 111 H 109 H Carbon Dioxide 16 L 19 L BUN 37 H 53 H Creatinine 1.5 H 1.7 H Glucose 127 H 133 H AST 37 H Alkaline Phosphatase 182 H 226 H Total Protein 5.5 L Albumin 2.7 L 08/10/22 06:18 WBC 3.8 L RBC 2.98 L Hgb 7.7 L Hct 25.1 L MCH 25.8 L MCHC 30.7 L RDW 18.4 H Plt Count 74 L Immature Gran % (Auto) Lymph # (Auto) 0.78 L Potassium Chloride Carbon Dioxide BUN Creatinine Glucose AST Alkaline Phosphatase Total Protein Albumin Meds: Medications Acetaminophen (Acetaminophen 325 Mg Tablet) 650 mg PO Q6HP PRN; Protocol PRN Reason: Per Pain Protocol/Fever > 101 Last Admin: 08/10/22 11:46 Dose: 650 mg Hydrocodone Bitart/Acetaminophen (Hydrocodone/Apap 7.5/325mg Tablet) 0 tab PO Q4HP PRN; Protocol PRN Reason: Per Pain Protocol Last Admin: 08/11/22 22:10 Dose: 1 tab Albuterol/Ipratropium (Ipratropium/Albuterol 3 Ml Ampul.Neb) 3 ml NEB Q4HRT PRN PRN Reason: Wheezing Aspirin (Aspirin 81 Mg Tab.Chew) 81 mg PO BID [facility] Last Admin: 08/11/22 22:10 Dose: 81 mg Ceftriaxone Sodium (Ceftriaxone 1 Gm Vial) 1 gm IV Q24H [facility]; Protocol Last Admin: 08/11/22 10:14 Dose: 1 gm Dextrose (Dextrose 50% 50 Ml Vial) 0 ml IV UD PRN PRN Reason: Per Sliding Scale Diagnostic Test (Pha) (Accu-Chek 1 Each Strip) 1 each FS ACHS [facility] Last Admin: 08/12/22 07:09 Dose: 1 each Docusate Sodium (Docusate Sodium 100 Mg Capsule) 100 mg PO BID [facility] Last Admin: 08/11/22 22:09 Dose: 100 mg Gabapentin (Gabapentin 400 Mg Capsule) 1,200 mg PO TID [facility] Last Admin: 08/11/22 22:10 Dose: 1,200 mg Glucose (Dextrose 31 Gm Oral.Susp) 15 gm PO PRN PRN PRN Reason: Hypoglycemia Hydralazine HCl (Hydralazine 20 Mg/Ml Vial) 10 mg IV Q4-6HP PRN PRN Reason: Hypertension Hydromorphone HCl (Hydromorphone 0.5 Mg/0.5 Ml Syringe) 1 mg IV Q2HP PRN; Protocol PRN Reason: Per Pain Protocol Last Admin: 08/11/22 19:28 Dose: 0.5 mg Insulin Glargine (Insulin Glargine, Human 1 Unit/0.01 Ml) 40 unit SQ [facility] Last Admin: 08/11/22 22:38 Dose: 40 units Insulin Human Lispro (Insulin Lispro 1 Unit/0.01 Ml Unit) 0 unit SQ [facility]; Protocol Last Admin: 08/12/22 07:12 Dose: Not Given Isosorbide Mononitrate (Isosorbide Mononitrate 30 Mg Tab.Xl.24h) 30 mg PO DAILY [facility] Last Admin: 08/11/22 11:01 Dose: 30 mg Latanoprost (Latanoprost Ophth Drops 2.5ml Bottle) 1 gtt OU HS [facility] Last Admin: 08/11/22 22:11 Dose: Not Given Melatonin (Melatonin 3 Mg Tablet) 3 mg PO [facility] Last Admin: 08/11/22 22:09 Dose: 3 mg Methocarbamol (Methocarbamol 500 Mg Tablet) 500 mg PO QIDP PRN PRN Reason: Muscle Spasm Last Admin: 08/11/22 11:18 Dose: 500 mg Methocarbamol (Methocarbamol 1,000 Mg/10 Ml Vial) 500 mg IV Q6HP PRN PRN Reason: Muscle Spasm Last Admin: 08/10/22 15:56 Dose: 500 mg Metoprolol Succinate (Metoprolol Succinate 25 Mg Tab.Xl.24h) 25 mg PO BID [facility] Last Admin: 08/11/22 22:09 Dose: 25 mg Nitroglycerin (Nitroglycerin 0.4 Mg Tab.Subl) 0.4 mg SL PRN PRN PRN Reason: Chest Pain [facility] ([facility]) [facility] Admin: 08/12/22 07:09 Dose: 20 mg Ondansetron HCl (Ondansetron 4 Mg/2 Ml Vial) 4 mg IV Q6HP PRN PRN Reason: Nausea And Vomiting Last Admin: 08/11/22 22:10 Dose: 4 mg Senna (Sennosides 1 Tablet) 2 tab PO [facility] Last Admin: 08/11/22 22:10 Dose: 2 tab Sodium Biphosphate/Sodium Phosphate (Fleets Adult Enema) 1 dose DC Q3-4DAYS PRN PRN Reason: Constipation Sodium Chloride (0.9 % Sodium Chloride 10 Ml Syringe) 10 ml IV Q8 [facility] Last Admin: 08/12/22 06:03 Dose: 10 ml Trazodone HCl (Trazodone Hcl 50 Mg Tablet) 25 mg PO HSP PRN PRN Reason: Insomnia A/P Narrative A/P Narrative: Assessment and Plans: *Closed right subcapital hip fracture: s/p ORIF Dr. Pereira (08/09) -Tylenol PRN mild pain , [place] PRN moderate pain , Dilaudid IV PRN severe pain -Robaxin PRN muscle spasm -Physical therapy evaluation and treatment *Post surgical anemia: -attempted to Transfuse 2 unit pRBC yesterday, reaction to first unit. now starting 2nd unit, will give 2 units. -cbc w/ auto diff to trend H/H *UTI(E coli): -Blood culture X2, no growth to date -Rocephin *Hyperkalemia: -Hold Losartan -f/u chemistry trend serum potassium level *KEVEN: -Avoid nephrotoxic agents -Hold Lasix / Losartan -BMP in the morning to trend kidney functions *T2DM w/neuropathy: -HgA1c 8.0 -Lantus 40 unit HS , SSI -Neurontin *HTN: -Hold Lasix, Losartan. cont Metoprolol ER *Obesity: BMI 31 *ppx: Patient does not tolerating SCDs due to neuropathy; will do Aspirin 81mg PO BID / home ppi Plan of Treatment: dc planning Time Spent With Patient Time: Total time spent is greater than 50% in coordination of care (as documented) at patient's floor/unit and/or counseling patient: Total time spent with greater than 50% in coordination of care (as documented) at patient's floor/unit and/or counseling patient:: 35 - 50 minutes QUALITY Stroke Symptom Onset Unknown: No VTE Deep Vein Thrombosis/Pulmonary Embolism Present on Admission: Yes
[2022-08-12] MEDS: GABAPENTIN 400 MG CAPSULE PO SCH ×3 (08:51→20:17)
[2022-08-12] MEDS: ASPIRIN 81 MG TAB.CHEW PO SCH ×2 (08:51→20:17)
[2022-08-12] MEDS: METOPROLOL SUCCINATE 25 MG TAB.XL.24H PO SCH (08:52)
[2022-08-12] MEDS: cefTRIAXone 1 GM VIAL IV SCH (08:52)
[2022-08-12] MEDS: DOCUSATE SODIUM 100 MG CAPSULE PO SCH ×2 (08:52→20:17)
[2022-08-12] MEDS: ISOSORBIDE MONONITRATE 30 MG TAB.XL.24H PO SCH (08:52)
[2022-08-12] MEDS: HYDROCODONE/APAP 7.5/325MG TABLET PO PRN ×2 (09:02→20:18)
[2022-08-12] MEDS: ONDANSETRON 4 MG/2 ML VIAL IV PRN (09:02)
[2022-08-12] MEDS ORDERED: POLYETHYLENE GLYCOL 3350 17 GM PACKET PO ONE (09:24)
[2022-08-12 10:21] LABS: Appearance,Urine CLEAR (Clear); Bacteria,Urine FEW /hpf (0); Bilirubin,Urine NEGATIVE (Negative); Color,Urine LT. YELLOW; Culture Indicated,Urine Yes; Glucose,Urine (UA) NEGATIVE (Negative); Ketones,Urine NEGATIVE (Negative); Leukocyte Esterase,Urine TRACE /uL (Negative); Mucus,Urine FEW /hpf; Nitrate,Urine NEGATIVE (Negative); PH,Urine 5.5 (5.0-9.0); Protein,Urine TRACE mg/dL (Negative); Specific Gravity,Urine 1.015 (1.000-1.035); Urine Blood NEGATIVE ery/mcL (Negative); Urine Hyaline Cast 11 /lph (0-2); Urine RBC 1 /hpf (0-3); Urine Squamous Epithelial Cell 1 /hpf (0-4); Urine WBC 3 /hpf (0-4); Urobilinogen,Urine Normal
--- NOTE | 2022-08-12 11:27 | Discharge Summary ---
Discharge Provider Provider IMPORTANT FOLLOW-UP INFORMATION FOR PCP: Patient information: Note initiated : 08/12/22 at 11:25 am Service Date, if different from initiated Date: [] Patient: Nathaly Kunz 77 y/o F admitted on 08/08/22 for fall. Chief Complaint: [] Date of admission: 08/08/22 15:50 Discharge date: 08/13/22 Primary care physician: Marina Mejía Consults: 08/08/22 Consult to Physician [CONS] Stat Comment: Consulting Provider: Remberto Pereira Reason For Exam: Physician to Consult Consult to Physician [CONS] Stat Comment: Consulting Provider: Valente Hopkins Reason For Exam: Physician to Consult COURSE Hospital Course Hospital course: Principal diagnosis: post hip fracture Interval history: Ms. Kunz is a 77 year old F history of DVT, osteoarthritis status post right total knee replacement, type 2 diabetes mellitus, essential hypertensions, presenting with fall with right hip fracture. Earlier today, when she was walking from 1 room to the other, her knee just gave out and she fell landed on her right hip. She did not hit her head. She denies loss of consciousness. She denies any chest pain or palpitations. She denies lightheadedness. She denies headaches. She denies altered mental status or confusions. She denies any shortness of breath. Vital signs significant for slightly elevated blood pressure 163/60 9 mmHg latest. Labs remarkable for serum potassium level of 5.8, and serum Cr level of 2.1, baseline of 1.1. Hip and pelvic X ray showing displaced right subcapital hip fracture. Admission request was called for right hip fracture. Patient states that she is not on any anticoagulants such as Coumadin; she was only on Aspirin. 08/09: Serum potassium 5.8-->5.4, serum Cr level 2.1-->1.8. Continue IV fluid infusion for the time being. Patient did had good sleep last night, and she denies having any right hip pain at the moment. Urine studies suggest the presence of bacteriuria/urinary tract infections. She denies any dysuria but is complaining of increased urinary frequency prior to urinary catheter being placed in the ED. She denies any fever chills or diaphoresis. Surgery scheduled this afternoon. We have obtained blood culture x2 and will start her on Rocephin for coverage of urinary tract infections. Continue pain control meanwhile. Physical therapy evaluation and treatments after the surgery. 08/10: s/p hemiarthroplasty by Dr. Pereira on 08/09, patient tolerated the procedure well. Patient had physical therapy sections earlier this morning. She is currently committing of severe right lateral sharp hip pain as well as right lower quadrant abdominal pain. Hemoglobin went from 8.1 prior to the surgery to 7.7 this morning. Surgical site looks clean no blood oozing. Serum potassium level went from 5.4 yesterday to 5.6 this morning. Serum creatinine level went down from 1.8 yesterday to 1.7 this morning. Urine culture growing pansensitive E. coli. Blood culture no growth today. We increased the dose of the Dilaudid IV, continue [place] and Robaxin all for symptoms controlled. Continue laxative and stool softener to promote a bowel movement. Continue IV fluid and Rocephin for urinary tract infections. Continue physical therapy evaluation and treatments. 08/11: Hemoglobin 6.8 this morning. Serum potassium level 4.8, BUN/Cr 37/1.5, respectively. Patient denies any right hip pain. She is complainining of general body weakness. Continue Dilaudid, [place], and Robaxin for symptoms control. Transfuse 2 unit pRBC for worsening anemia. Continue laxative and stool softener to promote a bowel movement. Saline lock. Continue Rocephin for urinary tract infections. Continue physical therapy evaluation and treatments for placement planning. 08/12 Patient had reaction to blood transfusion first bag during day shift. Stopped immediately. Awaiting second bag. Waiting follow-up labs. We will need to recheck H&H and follow-up on that second unit of blood. Thrombocytopenia yesterday. To be stable. Follow-up renal function. She complains of constipation. 08/13 Patient feeling better today and stronger up to the blood yesterday. No gross bleeding noted. We will continue work on rehab. And monitor H&H closely. Assessment and Plans: *Closed right subcapital hip fracture: s/p ORIF Dr. Pereira (08/09) *Post surgical anemia: required 2 units prbc *UTI(E coli): *Hyperkalemia/Hypophosphatemia: *KEVEN: *T2DM w/neuropathy: -HgA1c 8.0 *HTN: *Obesity: BMI 31 Discharge diagnosis: Right hip fracture postop anemia E. coli UTI Secondary discharge diagnosis: Hyperkalemia acute kidney injury diabetes hypertension obesity Time Spent with Patient Time attestation: Total time spent providing and/or coordinating discharge services: Time spent: Greater than 30 minutes EXAM Constitutional Vitals: Temp Pulse Resp BP Pulse Ox O2 Del Method O2 Flow Rate 97.8 F 77 16 131/44 100 2 08/12/22 07:41 08/12/22 07:41 08/12/22 07:41 08/12/22 07:41 08/12/22 07:41 08/12/22 07:41 08/12/22 07:41 Discharge Data Data Completed and Pending Labs on day of discharge: Labs from last 24 hours 08/12/22 08/12/22 08/12/22 10:49 10:46 09:00 WBC Pending RBC Pending Hgb Pending Hct Pending MCV Pending MCH Pending MCHC Pending RDW Pending Plt Count Pending MPV Pending Immature Gran % (Auto) Pending Neut % (Auto) Pending Immature Gran # Pending Sodium Pending Potassium Pending Chloride Pending Carbon Dioxide Pending Anion Gap Pending BUN Pending Creatinine Pending GFR Calculation Pending Glucose Pending Uric Acid Pending Calcium Pending Phosphorus Pending Magnesium Pending Total Bilirubin Pending Direct Bilirubin Pending GGT Pending AST Pending ALT Pending Alkaline Phosphatase Pending Lactate Dehydrogenase Pending Total Protein Pending Albumin Pending Globulin Pending Albumin/Globulin Ratio Pending Triglycerides Pending Urine Color Lt. yellow Urine Appearance Clear Urine pH 5.5 Ur Specific Thayer 1.015 Urine Protein Trace A Urine Glucose (UA) Negative Urine Ketones Negative Urine Occult Blood Negative Urine Nitrate Negative Urine Bilirubin Negative Urine Urobilinogen Normal Ur Leukocyte Esterase Trace A Urine RBC 1 Urine WBC 3 Ur Squamous Epith Cells 1 Urine Bacteria Few A Hyaline Casts 11 H Urine Mucus Few A Ur Culture Indicated? Yes Preliminary micro results at discharge 08/09/22 08:57 Blood Culture - Preliminary Blood 08/09/22 08:56 Blood Culture - Preliminary Blood Discharge Plan Patient/Caregiver Discharge Instructions Activity: increase activity as tolerated Diet: Consistent Carbohydrate Prescriptions: New methocarbamol 500 mg Tablet 500 mg PO QIDP PRN (Reason: Muscle Spasm) Qty: 30 0RF hydrocodone-acetaminophen 7.5-325 mg Tablet 2 tab PO Q4HP MDD 6 tabs PRN (Reason: pain, moderate) Qty: 50 0RF aspirin [Leena Chewable Aspirin] 81 mg Tablet,Chewable 81 mg PO BID Qty: 60 0RF Continued latanoprost 1 GTT drops 1 drp OU HS insulin glargine [Lantus U-100 Insulin] 1 UNIT/0.01 ML solution 40 unit SQ HS nitroglycerin [Nitrostat] 0.4 MG tablet, sublingual 0.4 mg SL PRN PRN (Reason: Chest Pain) losartan [Cozaar] 100 MG tablet 100 mg PO HS melatonin 5 MG capsule 5 mg PO HS Gralise 600 MG tablet extended release 24 hr 1,200 mg PO BID Label Comments: 1200mg PO BID and 600mg at Noon Rx Instructions: 2 TABS IN AM, 1 AT NOON AND 2 AT HS. TOTAL OF 5 TABS PER DAY. omeprazole 20 MG capsule,delayed release(DR/EC) 20 mg PO BIDAC atorvastatin [Lipitor] 40 mg Tablet 40 mg PO QDAY gabapentin 600 mg Tablet 600 mg PO 1200 Rx Instructions: 2 TABS IN AM, 1 TAB AT NOON, AND 2 TABS AT HS isosorbide mononitrate 60 mg Tablet Extended Release 24 Hr 60 mg PO HS Rx Instructions: 120MG IN AM, 60MG AT HS isosorbide mononitrate 60 mg Tablet Extended Release 24 Hr 120 mg PO QAM Rx Instructions: 120MG IN AM AND 60MG AT HS losartan 25 mg Tablet 25 mg PO QDAY metoprolol succinate 50 mg Capsule,Sprinkle,Er 24hr 75 mg PO BID torsemide 20 mg Tablet 20 mg PO QAM Rx Instructions: SHOWS FILLED END OF JULY 2022. HAS NOT BEEN CONFIRMED THOUGH. MAIL ORDE R. No Action gabapentin 600 mg Tablet 1,200 mg PO QHS gabapentin 600 mg Tablet 600 mg PO 1300 Follow Up Plan Follow up with: Marina Mejía MD [Primary Care Provider] - Patient Disposition: Xfer SNF Plan of Treatment: dc planning Prognosis: Fair Rehab Potential: Fair I certify that the patient requires SNF services: Yes Overall status at discharge: patient is progressing back to baseline Discharge Orders: Discharge Order (Routine); Ordered 08/13/22 [facility] Thrombosis/Pulmonary Embolism Present on Admission: Yes
[2022-08-12 12:10] LABS: ALT/SGPT 12 U/L (<40); AST/SGOT 28 U/L (<32); Albumin 2.9 gm/dL (3.2-5.2); Albumin/Globulin Ratio 1.1 (1.0-2.3); Alkaline Phosphatase 208 U/L (39-117); Bilirubin,Direct < 0.2 mg/dL (0-0.3); Bilirubin,Total 0.4 mg/dL (0.1-1.0); Blood Urea Nitrogen 36 mg/dL (8-23); Calcium 8.9 mg/dL (8.6-10.4); Carbon Dioxide 19 mmol/L (22-30); Chloride 106 mmol/L (96-108); Globulin 2.7 gm/dL (2.2-3.7); Glomerular Filtration Rate 31; Glucose 122 mg/dL (70-105); Lactate Dehydrogenase 126 U/L (135-225); Phosphorous 2.5 mg/dL (2.5-4.5); Triglycerides 97 mg/dL (<150); Uric Acid 9.2 mg/dL (2.5-8.0)
[2022-08-12] MEDS ORDERED: 0.9 % SODIUM CHLORIDE 500 ML IV ONE (12:26)
[2022-08-12 13:27] LABS: Basophils # (Auto) 0.01 K/mcL (0.00-0.30); Basophils % (Auto) 0.4 % (0.0-2.0); Eosinophils # (Auto) 0.09 K/mcL (0.00-0.70); Eosinophils % (Auto) 3.6 % (0.0-7.0); Hematocrit 19.8 % (34.1-44.9); Hemoglobin 6.2 g/dL (11.2-15.7); Lymphocytes # (Auto) 0.42 K/mcL (1.50-4.80); Lymphocytes % (Auto) 16.7 % (15.5-49.0); Mean Cell Volume 87.2 fL (80.0-100.0); Mean Corpuscular HGB Conc 31.3 g/dL (31.0-36.0); Mean Platelet Volume 10.8 fL (8.8-12.5); Monocytes # (Auto) 0.23 K/mcL (0.10-0.90); Monocytes % (Auto) 9.2 % (1.0-12.0); Neutrophils % (Auto) 69.3 % (38.0-78.0); Platelet Count 77 K/mcL (140-440); RBC 2.27 M/mcL (3.59-5.38); Red Cell Distribution Width 18.9 % (11.5-14.5); WBC 2.5 K/mcL (4.5-11.0)
[2022-08-12] MEDS ORDERED: 0.9 % SODIUM CHLORIDE 250 ML IV SCH (13:45)
[2022-08-12] MEDS: SENNOSIDES 1 TABLET PO SCH (20:17)
[2022-08-12] MEDS: MELATONIN 3 MG TABLET PO SCH (20:17)
[2022-08-12] MEDS: METOPROLOL SUCCINATE 50 MG TAB.XL.24H PO SCH (20:17)
[2022-08-12] MEDS: INSULIN GLARGINE, HUMAN 1 UNIT/0.01 ML SQ SCH (20:18)
[2022-08-12] MEDS: LATANOPROST OPHTH DROPS 2.5ML BOTTLE OU SCH (20:19)
[2022-08-12] MEDS ORDERED: ISOSORBIDE MONONITRATE 60 MG TAB.XL.24H PO SCH (21:00)
[2022-08-13] MEDS: 0.9 % SODIUM CHLORIDE 10 ML SYRINGE IV SCH (04:53)
[2022-08-13] MEDS: INSULIN LISPRO 1 UNIT/0.01 ML UNIT SQ SCH ×2 (06:58→11:21)
[2022-08-13] MEDS: OMEPRAZOLE 20 MG CAPSULE PO SCH (06:58)
[2022-08-13] MEDS: METHOCARBAMOL 500 MG TABLET PO PRN (06:58)
[2022-08-13 07:08] LABS: Basophils # (Auto) 0.01 K/mcL (0.00-0.30); Basophils % (Auto) 0.3 % (0.0-2.0); Eosinophils # (Auto) 0.17 K/mcL (0.00-0.70); Eosinophils % (Auto) 5.6 % (0.0-7.0); Hematocrit 26.8 % (34.1-44.9); Hemoglobin 8.5 g/dL (11.2-15.7); Lymphocytes # (Auto) 0.51 K/mcL (1.50-4.80); Lymphocytes % (Auto) 16.8 % (15.5-49.0); Mean Cell Volume 88.4 fL (80.0-100.0); Mean Corpuscular HGB Conc 31.7 g/dL (31.0-36.0); Monocytes # (Auto) 0.32 K/mcL (0.10-0.90); Monocytes % (Auto) 10.5 % (1.0-12.0); Neutrophils % (Auto) 65.8 % (38.0-78.0); Platelet Count 70 K/mcL (140-440); RBC 3.03 M/mcL (3.59-5.38); Red Cell Distribution Width 17.1 % (11.5-14.5)
[2022-08-13 07:50] LABS: ALT/SGPT 12 U/L (<40); AST/SGOT 28 U/L (<32); Albumin/Globulin Ratio 1.1 (1.0-2.3); Alkaline Phosphatase 209 U/L (39-117); Bilirubin,Direct 0.2 mg/dL (<0.3); Bilirubin,Total 0.6 mg/dL (0.1-1.0); Blood Urea Nitrogen 35 mg/dL (8-23); Calcium 8.8 mg/dL (8.6-10.4); Carbon Dioxide 19 mmol/L (22-30); Chloride 109 mmol/L (96-108); Globulin 2.7 gm/dL (2.2-3.7); Glomerular Filtration Rate 31; Glucose 68 mg/dL (70-105); Lactate Dehydrogenase 143 U/L (135-225); Phosphorous 2.2 mg/dL (2.5-4.5); Triglycerides 79 mg/dL (<150); Uric Acid 9.3 mg/dL (2.5-8.0)
[2022-08-13] MEDS: DOCUSATE SODIUM 100 MG CAPSULE PO SCH (08:20)
[2022-08-13] MEDS: GABAPENTIN 400 MG CAPSULE PO SCH (08:22)
[2022-08-13] MEDS: METOPROLOL SUCCINATE 50 MG TAB.XL.24H PO SCH (08:22)
[2022-08-13] MEDS: ASPIRIN 81 MG TAB.CHEW PO SCH (08:22)
--- NOTE | 2022-08-13 08:26 | Internal Med Progress Note ---
SUBJECTIVE Subjective Patient information: Note initiated : 08/13/22 at 8:25 am Service Date, if different from initiated Date: [] Patient: Nathaly Kunz a 77 y/o F admitted on 08/08/22 for fall. Chief Complaint: [] Principal diagnosis: post hip fracture Interval history: Ms. Kunz is a 77 year old F history of DVT, osteoarthritis status post right total knee replacement, type 2 diabetes mellitus, essential hypertensions, presenting with fall with right hip fracture. Earlier today, when she was walking from 1 room to the other, her knee just gave out and she fell landed on her right hip. She did not hit her head. She denies loss of consciousness. She denies any chest pain or palpitations. She denies lightheadedness. She denies headaches. She denies altered mental status or confusions. She denies any shortness of breath. Vital signs significant for slightly elevated blood pressure 163/60 9 mmHg latest. Labs remarkable for serum potassium level of 5.8, and serum Cr level of 2.1, baseline of 1.1. Hip and pelvic X ray showing displaced right subcapital hip fracture. Admission request was called for right hip fracture. Patient states that she is not on any anticoagulants such as Coumadin; she was only on Aspirin. 08/09: Serum potassium 5.8-->5.4, serum Cr level 2.1-->1.8. Continue IV fluid infusion for the time being. Patient did had good sleep last night, and she denies having any right hip pain at the moment. Urine studies suggest the presence of bacteriuria/urinary tract infections. She denies any dysuria but is complaining of increased urinary frequency prior to urinary catheter being placed in the ED. She denies any fever chills or diaphoresis. Surgery scheduled this afternoon. We have obtained blood culture x2 and will start her on Rocephin for coverage of urinary tract infections. Continue pain control meanwhile. Physical therapy evaluation and treatments after the surgery. 08/10: s/p hemiarthroplasty by Dr. Pereira on 08/09, patient tolerated the procedure well. Patient had physical therapy sections earlier this morning. She is currently committing of severe right lateral sharp hip pain as well as right lower quadrant abdominal pain. Hemoglobin went from 8.1 prior to the surgery to 7.7 this morning. Surgical site looks clean no blood oozing. Serum potassium level went from 5.4 yesterday to 5.6 this morning. Serum creatinine level went down from 1.8 yesterday to 1.7 this morning. Urine culture growing pansensitive E. coli. Blood culture no growth today. We increased the dose of the Dilaudid IV, continue Badger and Robaxin all for symptoms controlled. Continue laxative and stool softener to promote a bowel movement. Continue IV fluid and Rocephin for urinary tract infections. Continue physical therapy evaluation and treatments. 08/11: Hemoglobin 6.8 this morning. Serum potassium level 4.8, BUN/Cr 37/1.5, respectively. Patient denies any right hip pain. She is complainining of general body weakness. Continue Dilaudid, Badger, and Robaxin for symptoms control. Transfuse 2 unit pRBC for worsening anemia. Continue laxative and stool softener to promote a bowel movement. Saline lock. Continue Rocephin for urinary tract infections. Continue physical therapy evaluation and treatments for placement planning. 08/12 Patient had reaction to blood transfusion first bag during day shift. Stopped immediately. Awaiting second bag. Waiting follow-up labs. We will need to recheck H&H and follow-up on that second unit of blood. Thrombocytopenia yesterday. To be stable. Follow-up renal function. She complains of constipation. Second unit of blood transfusion right now without incident. Patient received only scant amount of first unit of blood. 08/13 Patient feeling stronger today after getting blood yesterday. EGD yesterday which showed no active bleeding varices but 1 lesion where it looks like it had been bleeding. This varix was clipped. Hemoglobin stable today. No bleeding overnight. Review of Systems: denies headache/fever/chills/nausea/vomiting/chest or abdominal pain/cough/dyspnea/diarrhea. Otherwise see above. Constitutional Vitals: Vital Signs Temp Pulse Resp BP Pulse Ox O2 Del Method O2 Flow Rate 97.5 F 57 L 12 115/51 100 2 08/13/22 06:45 08/13/22 06:45 08/13/22 06:45 08/13/22 06:45 08/13/22 06:45 08/13/22 06:45 08/13/22 06:45 Period Temp Pulse Resp BP Sys/Stout Pulse Ox O2 Del Method O2 Flow Rate Last 24 Hr 97.5 F-99.0 F 57-69 12-16 115-137/46-54 90-100 Nasal Cannula- Room Air 1-2 Intake and Output 08/12/22 08/13/22 08/13/22 19:59 03:59 11:59 Intake Total 2765 300 Output Total 400 450 Balance 2365 -150 Weight 82.599 kg Intake & Output: Intake & Output 08/12/22 08/13/22 08/13/22 19:59 03:59 11:59 Intake Total 2765 300 Output Total 400 450 Balance 2365 -150 Weight 82.599 kg Intake: IV 1500 Sodium Chloride 0.9% 1,000 ml @ 1500 100 mls/hr IV .Q10H [facility] Rx#: [id number] Oral 640 300 Blood Product 625 Output: Urine Catheter Amount 400 450 Other: Meal Lunch Percent of Meal Consumed 100% Urine Appearance Clear Uretheral (Price) Clear Clear Urine Color Yellow Uretheral (Price) Bright Yellow Bright Yellow Exam: General: Alert, Awake, No acute Distress, obesity Eyes/N/T: EOMI, Head/Neck: neck supple, CV: RRR, 2/6SM, Pulm: Clear b/l, no wheezing/rhonchi/rales Abd: soft, nontender, +BS x4 Ext: no clubbing/cyanosis/edema, Right lateral hip covered by surgical dressing Neuro: Alert, no focal deficits, moves all extremities, Skin: warm/dry OBJ DATA Labs CBC & Chem 7: 08/13/22 05:25 08/13/22 05:25 Labs: Abnormal Lab Results 08/13/22 08/13/22 08/12/22 05:25 05:25 12:25 WBC 3.0 L 2.5 L RBC 3.03 L 2.27 L Hgb 8.5 L 6.2 L* Hct 26.8 L 19.8 L* MCHC RDW 17.1 H 18.9 H Plt Count 70 L 77 L Immature Gran % (Auto) 1.0 H 0.8 H Lymph # (Auto) 0.51 L 0.42 L Absolute Neutrophils 1.74 L Chloride 109 H Carbon Dioxide 19 L BUN 35 H Creatinine 1.6 H Glucose 68 L Uric Acid 9.3 H Phosphorus 2.2 L GGT 148 H Alkaline Phosphatase 209 H Lactate Dehydrogenase Total Protein 5.7 L Albumin 3.0 L Urine Protein Ur Leukocyte Esterase Urine Bacteria Hyaline Casts Urine Mucus 08/12/22 08/12/22 08/11/22 10:46 09:00 05:40 WBC RBC Hgb Hct MCHC RDW Plt Count Immature Gran % (Auto) Lymph # (Auto) Absolute Neutrophils Chloride 111 H Carbon Dioxide 19 L 16 L BUN 36 H 37 H Creatinine 1.6 H 1.5 H Glucose 122 H 127 H Uric Acid 9.2 H Phosphorus GGT 151 H Alkaline Phosphatase 208 H 182 H Lactate Dehydrogenase 126 L Total Protein 5.6 L 5.5 L Albumin 2.9 L 2.7 L Urine Protein Trace A Ur Leukocyte Esterase Trace A Urine Bacteria Few A Hyaline Casts 11 H Urine Mucus Few A 08/11/22 05:40 WBC 4.0 L RBC 2.51 L Hgb 6.8 L* Hct 22.3 L MCHC 30.5 L RDW 18.6 H Plt Count 70 L Immature Gran % (Auto) 1.3 H Lymph # (Auto) 0.66 L Absolute Neutrophils Chloride Carbon Dioxide BUN Creatinine Glucose Uric Acid Phosphorus GGT Alkaline Phosphatase Lactate Dehydrogenase Total Protein Albumin Urine Protein Ur Leukocyte Esterase Urine Bacteria Hyaline Casts Urine Mucus Meds: Medications Acetaminophen (Acetaminophen 325 Mg Tablet) 650 mg PO Q6HP PRN; Protocol PRN Reason: Per Pain Protocol/Fever > 101 Last Admin: 08/10/22 11:46 Dose: 650 mg Hydrocodone Bitart/Acetaminophen (Hydrocodone/Apap 7.5/325mg Tablet) 0 tab PO Q4HP PRN; Protocol PRN Reason: Per Pain Protocol Last Admin: 08/12/22 20:18 Dose: 1 tab Albuterol/Ipratropium (Ipratropium/Albuterol 3 Ml Ampul.Neb) 3 ml NEB Q4HRT PRN PRN Reason: Wheezing Aspirin (Aspirin 81 Mg Tab.Chew) 81 mg PO BID [facility] Last Admin: 08/12/22 20:17 Dose: 81 mg Atorvastatin Calcium (Atorvastatin 40 Mg Tablet) 40 mg PO DAILY [facility] Ceftriaxone Sodium (Ceftriaxone 1 Gm Vial) 1 gm IV Q24H [facility]; Protocol Last Admin: 08/12/22 08:52 Dose: 1 gm Dextrose (Dextrose 50% 50 Ml Vial) 0 ml IV UD PRN PRN Reason: Per Sliding Scale Diagnostic Test (Pha) (Accu-Chek 1 Each Strip) 1 each FS ACHS [facility] Last Admin: 08/13/22 06:58 Dose: 1 each Docusate Sodium (Docusate Sodium 100 Mg Capsule) 100 mg PO BID [facility] Last Admin: 08/12/22 20:17 Dose: 100 mg Gabapentin (Gabapentin 400 Mg Capsule) 1,200 mg PO TID [facility] Last Admin: 08/12/22 20:17 Dose: 1,200 mg Gabapentin (Gabapentin 300 Mg Capsule) 600 mg PO 1300 [facility] Glucose (Dextrose 31 Gm Oral.Susp) 15 gm PO PRN PRN PRN Reason: Hypoglycemia Hydralazine HCl (Hydralazine 20 Mg/Ml Vial) 10 mg IV Q4-6HP PRN PRN Reason: Hypertension Hydromorphone HCl (Hydromorphone 0.5 Mg/0.5 Ml Syringe) 1 mg IV Q2HP PRN; Protocol PRN Reason: Per Pain Protocol Last Admin: 08/11/22 19:28 Dose: 0.5 mg Insulin Glargine (Insulin Glargine, Human 1 Unit/0.01 Ml) 40 unit SQ [facility] Last Admin: 08/12/22 20:18 Dose: 40 units Insulin Human Lispro (Insulin Lispro 1 Unit/0.01 Ml Unit) 0 unit SQ [facility]; Protocol Last Admin: 08/13/22 06:58 Dose: Not Given Isosorbide Mononitrate (Isosorbide Mononitrate 60 Mg Tab.Xl.24h) 120 mg PO DAILY [facility] Isosorbide Mononitrate (Isosorbide Mononitrate 60 Mg Tab.Xl.24h) 60 mg PO [facility] Last Admin: 08/12/22 20:17 Dose: 60 mg Latanoprost (Latanoprost Ophth Drops 2.5ml Bottle) 1 gtt OU [facility] Last Admin: 08/12/22 20:19 Dose: Not Given Losartan Potassium (Losartan 25 Mg Tablet) 25 mg PO DAILY [facility] Melatonin (Melatonin 3 Mg Tablet) 3 mg PO [facility] Last Admin: 08/12/22 20:17 Dose: 3 mg Methocarbamol (Methocarbamol 500 Mg Tablet) 500 mg PO QIDP PRN PRN Reason: Muscle Spasm Last Admin: 08/13/22 06:58 Dose: 500 mg Methocarbamol (Methocarbamol 1,000 Mg/10 Ml Vial) 500 mg IV Q6HP PRN PRN Reason: Muscle Spasm Last Admin: 08/10/22 15:56 Dose: 500 mg Metoprolol Succinate (Metoprolol Succinate 50 Mg Tab.Xl.24h) 75 mg PO BID [facility] Last Admin: 08/12/22 20:17 Dose: 75 mg Nitroglycerin (Nitroglycerin 0.4 Mg Tab.Subl) 0.4 mg SL PRN PRN PRN Reason: Chest Pain Omeprazole (Omeprazole 20 Mg Capsule) 20 mg PO BIDAC [facility] Last Admin: 08/13/22 06:58 Dose: 20 mg Ondansetron HCl (Ondansetron 4 Mg/2 Ml Vial) 4 mg IV Q6HP PRN PRN Reason: Nausea And Vomiting Last Admin: 08/12/22 09:02 Dose: 4 mg Senna (Sennosides 1 Tablet) 2 tab PO HS [facility] Last Admin: 08/12/22 20:17 Dose: 2 tab Sodium Biphosphate/Sodium Phosphate (Fleets Adult Enema) 1 dose SD Q3-4DAYS PRN PRN Reason: Constipation Sodium Chloride (0.9 % Sodium Chloride 10 Ml Syringe) 10 ml IV Q8 [facility] Last Admin: 08/13/22 04:53 Dose: 10 ml Trazodone HCl (Trazodone Hcl 50 Mg Tablet) 25 mg PO HSP PRN PRN Reason: Insomnia A/P Narrative A/P Narrative: Assessment and Plans: *Closed right subcapital hip fracture: s/p ORIF Dr. Pereira (08/09) -Tylenol PRN mild pain , Badger PRN moderate pain , Dilaudid IV PRN severe pain -Robaxin PRN muscle spasm -Physical therapy evaluation and treatment *Post surgical anemia: -attempted to Transfuse 2 unit pRBC yesterday, reaction to first unit. now starting 2nd unit, will give 2 units. -cbc w/ auto diff to trend H/H -now s/p 2PRBC (08/12) with good response *UTI(E coli): -Blood culture X2, no growth to date. Rocephin *leukopenia: unknown baseline *Hyperkalemia/Hypophosphatemia: -Hold Losartan -f/u chemistry trend serum potassium level and other electorlyte and replace *KEVEN: -Avoid nephrotoxic agents -Hold torsemide, hold ARB, cont BB -BMP in the morning to trend kidney functions *T2DM w/neuropathy: -HgA1c 8.0 -Lantus 40 unit HS , SSI -Neurontin *HTN/HLD: -Hold Lasix, Losartan. cont Metoprolol ER. cont statin. *Obesity: BMI 32 *ppx: Patient does not tolerating SCDs due to neuropathy; will do Aspirin 81mg PO BID / home ppi Plan of Treatment: dc planning Time Spent With Patient Time: Total time spent is greater than 50% in coordination of care (as documented) at patient's floor/unit and/or counseling patient: Total time spent with greater than 50% in coordination of care (as documented) at patient's floor/unit and/or counseling patient:: 35 - 50 minutes QUALITY Stroke Symptom Onset Unknown: No VTE Deep Vein Thrombosis/Pulmonary Embolism Present on Admission: Yes
[2022-08-13] MEDS ORDERED: hydrALAZINE 20 MG/ML VIAL IV PRN (08:31)
[2022-08-13] MEDS: cefTRIAXone 1 GM VIAL IV SCH (08:32)
[2022-08-13] MEDS ORDERED: PHOSPHORUS 250 MG TABLET PO SCH (09:00)
[2022-08-13] MEDS ORDERED: LOSARTAN 25 MG TABLET PO SCH (09:00)
[2022-08-13] MEDS ORDERED: ATORVASTATIN 40 MG TABLET PO SCH (09:00)
[2022-08-13] MEDS ORDERED: ISOSORBIDE MONONITRATE 60 MG TAB.XL.24H PO SCH (09:00)
[2022-08-13] MEDS: ACETAMINOPHEN 325 MG TABLET PO PRN (12:48)
[2022-08-13] MEDS ORDERED: GABAPENTIN 300 MG CAPSULE PO SCH (13:00)
[2022-08-13] MEDS ORDERED: GABAPENTIN 400 MG CAPSULE PO SCH (21:00)
--- NOTE | 2022-08-26 11:51 | Operative Note ---
DATE OF OPERATION: 08/09/2022 DATE OF PROCEDURE: 08/09/2022 PREOPERATIVE DIAGNOSIS: Right subcapital femoral neck fracture. POSTOPERATIVE DIAGNOSIS: Right subcapital femoral neck fracture. OPERATION PROPOSED: Right hip hemiarthroplasty. OPERATION PERFORMED: Same. SURGEON: Remberto Pereira M.D. DIETITIAN HELPER: Brittany Kennedy PA-C. The expertise and technical skill of this provider were required throughout the case. The PA assisted with preoperative coordination, intraoperative retraction, wound closure, and dressing and splint application, as well as postoperative documentation and care coordination. INDICATIONS: This is a lady who has a displaced femoral neck fracture. She is in need of operative treatment. DESCRIPTION OF PROCEDURE: Informed consent was obtained. She was taken to the operating room. She was provided with appropriate anesthetic and prophylactic antibiotics. She was carefully positioned. Her hip was prepped sterilely. A standard posterior approach to the hip was performed. I dissected through the soft iliotibial band. I cut and released short external rotators. The hip capsule was cut and T'd. I debrided the femoral head. This was sized and I refined a femoral neck cut and then sequentially reamed and broached. An appropriately sized [place] fracture stem from [employer] was cemented into place. This was paired with a neutral neck and head ball. This was reduced into position. It was stable in all ranges. I closed with a #2 Ethibond in the capsule, 0 Vicryl and Stratafix in the iliotibial band, 2-0 inverted deep dermal and rosemarie in the skin. The procedure was tolerated well. No complications. ESTIMATED BLOOD LOSS: Less than 50 mL. GDD:[email or web address] Job ID: [id number] Doc ID: [id number] Remberto Pereira MD
== END 2022-08-13 13:15 | DRG 522 ==
LOC: ED 09:49 → MEDSUR 15:50
PROVIDERS: ADMIT Internal Medicine; ATTEND Internal Medicine